=== PATIENT | female | born 1965 | race Caucasian/White ===

== ENCOUNTER 2024-09-26 18:38 | Emergency (ER) | payer OTHER, SELFPAY ==
[2024-09-26] VITALS (7 sets, daily range): BP systolic 138–173; BP diastolic 51–85; PULSE 84–100; RESP 18–29; TEMP 36.4; O2SAT 92–97
--- NOTE | ~2024-09-26 | XR_ITS ---
CHEST RADIOGRAPH CLINICAL HISTORY: LEFT SIDE CHEST PAIN. HX OF COPD AND CHF. . COMPARISON: 10/20/2018 TECHNIQUE: Single portable view of the chest. FINDINGS The cardiomediastinal silhouette is unremarkable. The lungs are clear. Visualized osseous structures and soft tissues are unremarkable. IMPRESSION: No focal infiltrate or effusion. Reviewed, dictated and finalized at location A. EL WORKER
--- OUTSIDE RECORDS SUMMARY | 2024-09-26 18:40 | XMS_ITS | Referral Summary ---
Author Organization [facility] Address [address] [place] [id number] Care Team Providers Care Double End Trimmer Name Role Phone Remy Armendariz MD Primary Care Provider [phone] Allergies Active Allergy Reactions Criticality Noted Date Comments Latex Rash Medium 03/03/2020 Tramadol Other (See comments),Vomiting Low 2016 CHEST PAIN Medications lisinopril (PRINIVIL,ZESTRIL ) 2.5 mg tabletIndications :cardiovascular disease Take 1 tablet (2.5 mg total) by mouth daily. 8 Active cholestyramine/as partame (CHOLESTYRAMINE LIGHT ORAL) Take by mouth Acti ve famotidine (PEPCID) 40 mg tablet Take 1 tablet (40 mg total) by mouth daily PRN Active dulaglutide (TRULICITY) 0.75 mg/0.5 mL pen injector Inject 0.5 mL (0.75 mg total) under the skin every 7 days Active insulin glargine 100 unit/mL vial for injection Inject 30 Units under the skin daily Active atorvastatin (LIPITOR) 40 mg tablet Take 1 tablet by mouth once daily 90 tablet 3 4 Active acetaminophen (TYLENOL) 500 mg tablet Take 1 tablet (500 mg total) by mouth every 6 (six) hours as needed Active nicotine (NICODERM CQ) [address] 1 patch on the skin daily as needed 2 Active ondansetron (ZOFRAN) 4 mg tablet Take 1 tablet (4 mg total) by mouth every 8 (eight) hours 4 Active TRUEplus Pen Needle 32 gauge x 5/32 needle 4 Active benzonatate (TESSALON) 200 mg capsuleIndication s:COPD with acute exacerbation (HCC) Take 1 capsule (200 mg total) by mouth 3 (three) times a day as needed for cough keep tessalon out of reach of children, especially children under the age of 10, due to possible serious risk such as if ingested by children under the age of 10. 30 capsule 4 Active carvediloL (COREG) 6.25 mg tablet TAKE 1 TABLET BY MOUTH TWICE DAILY WITH MEALS 180 tablet 4 Active Active Problems Problem Noted Date Diagnosed Date Abnormal EKG 05/23/2021 Overview (05/23/2021): Added automatically from request for surgery [id number] Chest pain 04/27/2021 Assessment & Plan (04/27/2021 9:33 AM CDT): The patient has new exertional chest pain with multiple risk factors for coronary artery disease. We will reassess with a Lexiscan nuclear stress test. Cardiomyopathy 03/03/2020 Assessment & Plan (02/27/2024 9:22 AM CDT): Stable. Continue carvedilol and lisinopril. Assessment & Plan (08/08/2023 10:54 AM ICD 9 CODER): Check echo. Increase carvedilol to 6.25 mg b.i.d.. Assessment & Plan (12/13/2022 11:08 AM CDT): No signs or symptoms of congestive heart failure. Continue carvedilol and lisinopril. Assessment & Plan (04/27/2021 9:33 AM CDT): The patient has dyspnea on exertion without orthopnea or PND. We will reassess her LV function. In the meantime she will continue on carvedilol and lisinopril. Hypertension 03/03/2020 Assessment & Plan (02/27/2024 9:23 AM CDT): Controlled with carvedilol and lisinopril. No changes recommended Assessment & Plan (08/08/2023 10:54 AM ICD 9 CODER): Controlled with lisinopril and carvedilol. Assessment & Plan (04/27/2021 9:33 AM CDT): Controlled with current medications. 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 No signs of advanced heart block. Continue to monitor. Assessment & Plan (12/13/2022 11:08 AM CDT): Stable and unchanged. 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 Vitamin D deficiency 12/18/2013 Overview (11/08/2016): VITAMIN D DEFICIENCY NOS Pure hypercholesterolemia 12/18/2013 Overview (11/08/2016): PURE HYPERCHOLESTEROLEM Assessment & Plan (02/27/2024 9:23 AM CDT): Continue atorvastatin. Assessment & Plan (08/08/2023 10:54 AM ICD 9 CODER): Continue atorvastatin. Abnormal cardiovascular stress test Immunizations Immunization Administration Dates Next Due Influenza, Split 06/05/2011 Tdap 03/22/2023 Social History Tobacco Use Types Packs/Day Years Used Date Smoking Tobacco: Every Day Cigarettes 1 15 Smokeless Tobacco: Never Comments:Smoking History Pac ks/day: 2 Packs Alcohol Use Standard Drinks/Week Comments No 0 (1 standard drink = 0.6 oz pur e alcohol) Comments Unknown Sex and Gender Information Value Date Recorded Sex Assigned at Not on file Legal Sex Female 7:24 PM ICD 9 CODER Gender Identity Not on file Sexual Orientation Not on file Last Filed Vital Signs Vital Sign Reading Time Taken Comments Blood Pressure 120/75 04/09/2024 10:57 AM CDT Pulse 88 04/09/2024 10:57 AM CDT Temperature 36.8 C (98.2 F) 04/09/2024 10:57 AM CDT Respiratory Rate 22 04/09/2024 10:57 AM CDT Oxygen Saturation 98% 04/09/2024 10:57 AM CDT Inhaled Oxygen Concentration - - Weight 72.6 kg (160 lb) 04/09/2024 10:57 AM CDT Height 162.6 cm (5' 4 ) 04/09/2024 10:57 AM CDT Body Mass Index 27.46 04/09/2024 10:57 AM CDT Plan of Treatment Not on file Procedures Procedure Name Priority Date/Time Associated Diagnosis Comments LIPID PANEL Routine 02/21/2023 9:03 AM CDT Cardiomyopathy, unspecified type (HCC) EGFR STAT 05/24/2021 6:58 AM CDT HEMOGLOBIN A1C Routine 12/18/2017 9:40 AM CDT from Last 3 Months or Most Recently Relevant to Health Maintenance Results * (ABNORMAL) Lipid panel (02/21/2023 9:03 AM CDT) Cholesterol 324(H) 30 - 199 mg/dL ALLEN FORTE Comment: Interpretive Data Ages < or = 19 years Acceptable: <170 mg/dL Borderline high: 170-199 mg/dL High: >or= 200 mg/dL Ages > or = 20 years Desirable: <200 mg/dL Borderline high: 200-239 mg/dL High: >or= 240 mg/dL Literature References: 1. Expert Panel on Integrated Guidelines for Cardiovascular Health and Risk Reduction in Children and Adolescents. Pediatrics 2011;128:S213 2. NCEP Expert Panel. Circulation 2004;110:227 Current Interpretive Data was last revised on 2018. Triglycerides 326(H) <=149 mg/dL ALLEN Comment: Interpretive Data Ages < or = 9 years Acceptable: <75 mg/dL Borderline high: 75-99 mg/dL High: >or= 100 mg/dL Ages 10 to 20 years Acceptable: <90 mg/dL Borderline high: 90-129 mg/dL High: >or= 130 mg/dL Ages > or = 20 years Desirable: <150 mg/dL Borderline high: 150-199 mg/dL High: 200-499 mg/dL Very high: >or= 499 mg/dL Literature References: 1. Expert Panel on Integrated Guidelines for Cardiovascular Health and Risk Reduction in Children and Adolescents. Pediatrics 2011;128:S213 2. NCEP Expert Panel. Circulation 2004;110:227 Current Interpretive Data was last revised on 2018. HDL 35(L) >=40 mg/dL ALLEN Comment: Interpretive Data Ages < or = 19 years Acceptable: >45 mg/dL Borderline low: 40-45 mg/dL Low: <40 mg/dL Ages > or = 20 years Desirable: >or= 60 mg/dL Low: <40 mg/dL Literature References: 1. Expert Panel on Integrated Guidelines for Cardiovascular Health and Risk Reduction in Children and Adolescents. Pediatrics 2011;128:S213 2. NCEP Expert Panel. Circulation 2004;110:227 Current Interpretive Data was last revised on 2018. LDL, calculated 224(H) <=129 mg/dL ALLEN Comment: Interpretive Data Ages < or = 19 years Acceptable: <110 mg/dL Borderline high: 110-129 mg/dL High: >or= 130 mg/dL Ages > or = 20 years Optimal: <100 mg/dL Near optimal: 100-129 mg/dL Borderline high: 130-159 mg/dL High: >160 mg/dL Literature References: 1. Expert Panel on Integrated Guidelines for Cardiovascular Health and Risk Reduction in Children and Adolescents. Pediatrics 2011;128:S213 2. NCEP Expert Panel. Circulation 2004;110:227 Current Interpretive Data was last revised on 2018. Non-HDL Cholesterol 289 mg/dL ALLEN Comment: Interpretive Data Ages < or = 19 years Acceptable: <120 mg/dL Borderline high: 120-144 mg/dL High: >145 mg/dL Ages > or = 20 years When triglycerides are >200 mg/dL, Non-HDL cholesterol is a secondary target of therapy with treatment goals that are 30 mg/dL greater than the LDL cholesterol target. Literature References: 1. Expert Panel on Integrated Guidelines for Cardiovascular Health and Risk Reduction in Children and Adolescents. Pediatrics 2011;128:S213 2. NCEP Expert Panel. Circulation 2004;110:227 Current Interpretive Data was last revised on 2018. Chol/HDL ratio 9 [facility] Blood 02/21/2023 9:03 AM CDT 02/21/2023 12:57 PM CDT us John López MD LAB BLOOD ORDERABLES Final Res ult ALLEN [id number] Department [place] [address] * eGFR (05/24/2021 6:58 AM CDT) eGFR 113 mL/min/1.7 3 m2 ALLEN Comment: Interpretive Data Reference Interval Normal >/= 90 mL/min/1.73m2 Mildly decreased* 60 - 89 mL/min/1.73m2 Mildly to moderately decreased 45 - 59 mL/min/1.73m2 Moderately to severely decreased 30 - 44 mL/min/1.73m2 Severely decreased 15 - 29 mL/min/1.73m2 Kidney Failure < 15 mL/min/1.73m2 *Relative to young adult level Estimated glomerular filtration rate is determined by the CKD-EPI equation recommended by the National Kidney Foundation (KDIGO 2012 Clinical Practice Guideline for the Evaluation and Management of Chronic Kidney Disease. Kidney Intnl Suppl Aug 2012;3:1). The CKD-EPI equation should not be used for patients with unstable renal function and has not been validated in children and those over 70. Current interpretive data was last reviewed 2020 Blood 05/24/2021 6:58 AM CDT 05/24/2021 7:02 AM CDT us John López MD LAB BLOOD ORDERABLES Final Res ult Performing Organization Address City/[facility] [address]/ZIP Co de Phone Number ALLEN [phone] Department of Laboratories [place], [place] [id number] * (ABNORMAL) Hemoglobin A1c (12/18/2017 9:40 AM CDT) Hgb A1C 11.5(H) 4.0 - 6.0 % ALLEN FORTE Comment: Interpretive Data Hemoglobin A1c ADA Interpretive Guidelines <7% Glycemia controlled >8% Hyperglycemia, additional action recommended Karl Immunochemical Method Current interpretive data was last revised on 2016 [facility] [address] Estimated Average Glucose 283 mg/dL ALLEN Comment:Testing performed by : [facility], [place] [address] Blood specimen (specimen) 12/18/2017 9:40 AM CDT 12/18/2017 3:27 PM CDT Narrative ALLEN FORTE - 12/18/2017 8:48 PM CDT us Mary Haq MD LAB BLOOD ORDERABLES Final Re sult Performing Organization Address [facility] [address]/[facility] Co de Phone Number ALLEN [phone] Department [place] [address] from Last 3 Months or Most Recently Relevant to Health Maintenance Insurance [facility] Advance Directives For more information, please contact: [phone] * Full Code (Latest Code Status on File) Date Activated Date Inactivated Comments 05/24/2021 12:40 PM 05/24/2021 5:45 PM * Full Code Date Activated Date Inactivated Comments 12/18/2017 11:02 PM 12/19/2017 1:48 PM * Full Code Date Activated Date Inactivated Comments 12/18/2017 11:02 PM 12/18/2017 11:02 PM * Full Code Date Activated Date Inactivated Comments 12/18/2017 11:02 PM 12/18/2017 11:02 PM Care Teams Double End Trimmer Relationship Specialty Start Date End Date Remy Armendariz MD PCP - General Family Medicine 04/27/21
--- OUTSIDE RECORDS SUMMARY | 2024-09-26 18:40 | XMS_ITS | Patient Health Summary ---
Author Organization [facility] Address [address] [place] [address] Care Team Providers Care State Historical Society Director Name Role Phone James Chen MD Primary Care Provider [phone] Note from [facility],non-owned Affiliates and Associated Physician Practices is amultiple site organization consisting of ambulatory clinics and hospital sitesin [place], [place], [place] and [place]. This disclosure is being madepursuant to the Care Everywhere program and may not contain all information available regarding this patient. Last updated 18.[facility] [employer] Allergies * Coconut Flavor(Swelling) * Tramadol(Cardiac Injury) -High Criticality Medications * Be aware that medications may not be up to date on this document. Alwaysverify current medications with the patient. * Ascorbic Acid 1000 MG * B Complex Vitamins (VITAMIN-B COMPLEX PO) * Emahtrw-Kdmgseqlr-Xmjcgwd D 500-250-125 MG-MG-UNIT TABS * aspirin (ASPIRIN) 81 MG tablet Take 81 mg by mouth once daily * atorvastatin (LIPITOR) 40 MG tablet(Started 11/25/2018) Take 40 mg by mouth once daily * carvedilol (COREG) 3.125 MG tablet(Started 11/25/2018) Take 3.125 mg by mouth 2 times daily * glipiZIDE (GLUCOTROL) 10 MG tablet(Started 10/21/2018) Take 10 mg by mouth once daily * lisinopril (PRINIVIL; ZESTRIL) 2.5 MG tablet Take 2.5 mg by mouth once daily * metFORMIN (GLUCOPHAGE) 500 MG tablet Take 500 mg by mouth * omeprazole (PRILOSEC) 40 MG capsule(Started 12/18/2018) Take 40 mg by mouth once daily * ondansetron, disintegrating, (ZOFRAN ODT) 4 MG tablet(Started 03/23/2019) Take 8 mg by mouth * raNITIdine (ZANTAC) 300 MG tablet(Started 03/23/2019) Take 300 mg by mouth once daily Social History Tobacco Use Types Packs/Day Years Used Date Smoking Tobacco: Every Day Cigarettes 1 40 Smokeless Tobacco: Never Tobacco Cessation:Ready to Q uit: No; Counseling Given: No Alcohol Use Standard Drinks/Week Comments No 0 (1 standard drink = 0.6 oz pur e alcohol) Sex and Gender Information Value Date Recorded Sex Assigned at Not on file Gender Identity Not on file Sexual Orientation Not on file Last Filed Vital Signs Vital Sign Reading Time Taken Comments Blood Pressure 138/62 09/23/2020 10:09 AM EXPERIMENTAL ROCKETSLED MECHANIC Pulse 80 09/23/2020 10:09 AM EXPERIMENTAL ROCKETSLED MECHANIC Temperature 36.7 C (98 F) 09/23/2020 10:09 AM EXPERIMENTAL ROCKETSLED MECHANIC Respiratory Rate 16 09/23/2020 10:0 9 AM EXPERIMENTAL ROCKETSLED MECHANIC Oxygen Saturation 98% 09/23/2020 10: 09 AM EXPERIMENTAL ROCKETSLED MECHANIC Inhaled Oxygen Concentration - - Weight 73.8 kg (162 lb 12.8 oz) 021 10:09 AM EXPERIMENTAL ROCKETSLED MECHANIC Height 162.6 cm (5' 4 ) 09/23/2020 10:0 9 AM EXPERIMENTAL ROCKETSLED MECHANIC Body Mass Index 27.94 09/23/2020 10:09 AM EXPERIMENTAL ROCKETSLED MECHANIC Procedures * ESOPHAGUS, GASTROESOPHAGEAL REFLUX TEST; WITH NASAL CATHETER PH ELECTRODE PLACEMENT(Performed 04/14/2019) Performed for Hiatal hernia, Nausea and vomiting, intractability of vomiting not specified, unspecified vomiting type, Gastroesophageal reflux disease, esophagitis presence not specified * MOTILITY ESOPHAGEAL(Performed 04/14/2019) Performed for Hiatal hernia, Nausea and vomiting, intractability of vomiting not specified, unspecified vomiting type, Gastroesophageal reflux disease, esophagitis presence not specified Care Teams State Historical Society Director Relationship Specialty Start Date End Date James Chen MD [address] [place] [id number] PCP - General Family Medicine 04/14/19
--- OUTSIDE RECORDS SUMMARY | 2024-09-26 18:40 | XMS_ITS | Clinical Summary ---
Author Organization [facility] Address [address] [place] [id number] Care Team Providers Care Doweling Machine Operator Name Role Phone Remy Armendariz MD Primary Care Provider [phone] Allergies Active Allergy Reactions Criticality Noted Date [...] (05/23/2021): Added automatically from request for surgery [id number] Chest pain 04/27/2021 Assessment & Plan (04/27/2021 9:33 AM CDT): The patient has new exertional chest pain with multiple risk factors for coronary artery disease. We will reassess with a Lexiscan nuclear stress test. Cardiomyopathy 03/03/2020 Assessment & Plan (02/27/2024 9:22 AM CDT): Stable. Continue carvedilol and lisinopril. Assessment & Plan (08/08/2023 10:54 AM WELLNESS HEALTH COACH): Check echo. Increase carvedilol to 6.25 mg [...] recommended Assessment & Plan (08/08/2023 10:54 AM WELLNESS HEALTH COACH): Controlled with lisinopril and carvedilol. Assessment & [...] atorvastatin. Assessment & Plan (08/08/2023 10:54 AM WELLNESS HEALTH COACH): Continue atorvastatin. Abnormal cardiovascular stress test Immunizations Immunization Administration Dates Next Due Influenza, Split 06/05/2011 Tdap 03/22/2023 Surgical History Surgery Date Site/Laterality Comments TUBAL LIGATION 08/04/1989 - 08/03/1990 Bilateral tubal ligation CARPAL TUNNEL RELEASE 08/04/2007 - 08/03/2008 Carpal tunnel release CHOLECYSTECTOMY 08/04/2004 - 08/03/2005 Cholecystectomy CARPAL TUNNEL RELEASE Carpal tunnel release SECTION section CHOLECYSTECTOMY Cholecystectomy TUBAL LIGATION Bilateral tubal ligation CARDIAC CATHETERIZATION HYSTERECTOMY 08/04/2008 - 08/03/2009 partial, then full 10 years later Medical History Medical History Date Comments Adiposity obesity Diabetes mellitus (HCC) diabetes mellitus Diabetes mellitus (HCC) diabetes mellitus; Comments: uncontrolled Type 2 diabetes mellitus (HCC) D iabetes type 2 Hypertension Hyperlipidemia Fatty liver Arrhythmia pt unsure FL (myocardial infarction) (HCC) GERD (gastroesophageal reflux disease) Hiatal hernia Kidney stones Family History Medical History Relation Name Comments Colon cancer Father Cancer -colon; Hypertension Father Hypertension; Other Father Alive and well; Stroke Father Stroke; Coronary artery disease Mother Luis nary artery disease; /Coronary artery disease; Diabetes type II Mother Diabetes -T ype II; Cause of : Diabetes -Type II/Diabetes -Type 2; Hyperlipidemia Mother Hyperlipidemi a; Hypertension Mother Hypertension; Diabetes type II Sister 1 Diabetes -T ype II; Hypertension Sister 2 Hypertension; Relation Name Status Comments Father Alive Mother (Age 72) Sister 1 Sister 2 Social History Tobacco Use Types Packs/Day Years Used Date Smoking Tobacco: Every Day Cigarettes 1 15 Smokeless Tobacco: Never Comments:Smoking History Pac ks/day: 2 Packs Alcohol Use Standard Drinks/Week Comments No 0 (1 standard drink = 0.6 oz pur e alcohol) Comments Unknown Sex and Gender Information Value Date Recorded Sex Assigned at Not on file Legal Sex Female 7:24 PM WELLNESS HEALTH COACH Gender Identity Not on file Sexual Orientation Not on file Obstetrics History Last Filed Vital Signs Vital Sign Reading [...] 04/09/2024 10:57 AM CDT Plan of Treatment Health Maintenance Due Date Last Done Comments Albumin Creatinine Ratio, Urine 1966 Breast Cancer Screening-Mammogram 1966 Colon Cancer Screening-Colonoscopy 1966 Depression Screening 1966 Hepatitis C Screening 1966 Dilated Eye Exam 1966 Foot Exam 1966 Hepatitis B Screening 1984 Regular Well Visit/Exam 18-64 1984 Pneumococcal vaccine <65 (1 of 2 - PCV) 1985 Zoster Vaccine (1 of 2) 2016 Hemoglobin A1C 06/20/2018 12/18/2017 eGFR 05/24/2022 05/24/2021, 03/04, 12/10/2018, Additional history exists Lipid Panel 02/22/2024 02/21/2023 Covid-19 Vaccine (3 - 2023-2 5 season) 2024 11/11/2020, 10/14/2020 Influenza Vaccine (#1) 2024 06/05/2011 DTaP/Tdap/Td Vaccine (2 - Td or Tdap) 03/22/2033 03/22/2023 Procedures Procedure Name Priority Date/Time Associated Diagnosis [...] Pediatrics 2011;128:S213 2. NCEP Expert Panel. Circulation 2003;110:227 Current Interpretive Data was last revised on 2018. Triglycerides 326(H) <=149 mg/dL ALLEN FORTE Comment: Interpretive Data Ages [...] Pediatrics 2011;128:S213 2. NCEP Expert Panel. Circulation 2003;110:227 Current Interpretive Data was last revised on 2018. HDL 35(L) >=40 mg/dL ALLEN FORTE Comment: Interpretive Data Ages [...] 2018. LDL, calculated 224(H) <=129 mg/dL ALLEN FORTE Comment: Interpretive Data Ages [...] on 2018. Non-HDL Cholesterol 289 mg/dL ALLEN FORTE Comment: Interpretive Data Ages [...] last revised on 2018. Chol/HDL ratio 9 [facility] FORTE Blood 02/21/2023 9:03 AM CDT 02/21/2023 12:57 PM CDT John López MD LAB BLOOD ORDERABLES Final Res ult ALLEN [id number] [place] [address] * eGFR (05/24/2021 6:58 AM CDT) eGFR [...] 6:58 AM CDT 05/24/2021 7:02 AM CDT John López MD LAB BLOOD ORDERABLES Final Res ult Performing Organization Address [facility]/State/ZIP Co de Phone Number TOREYASHLEY [phone] Department of Laboratories [place], [place] [id number] * (ABNORMAL) Hemoglobin A1c (12/18/2017 9:40 AM CDT) Hgb A1C 11.5(H) 4.0 - 6.0 % ALLEN Comment: Interpretive Data Hemoglobin A1c ADA Interpretive Guidelines <7% Glycemia controlled >8% Hyperglycemia, additional action recommended Karl Immunochemical Method Current interpretive data was last revised on 2016 Testing performed by: [facility], [place] [address] Estimated Average Glucose 283 mg/dL ALLEN Comment:Testing performed by : [facility], [address], [place] [address] Blood specimen (specimen) 12/18/2017 9:40 AM CDT 12/18/2017 3:27 PM CDT Narrative ALLEN - 12/18/2017 8:48 PM CDT Mary Haq MD LAB BLOOD ORDERABLES Final Re sult Performing Organization Address [facility] Co de Phone Number ALLEN [address] [place] [address] from Last 3 Months or Most Recently Relevant to Health Maintenance Insurance [facility] Advance Directives For more information, please contact: [phone] * Full Code (Latest Code Status on File) Date Activated Date Inactivated Comments 05/24/2021 12:40 PM 05/24/2021 5:45 PM * Full Code Date Activated Date Inactivated Comments 12/18/2017 11:02 PM 12/19/2017 1:48 PM * Full Code Date Activated Date Inactivated Comments 12/18/2017 11:02 PM 12/18/2017 11:02 PM * Full Code Date Activated Date Inactivated Comments 12/18/2017 11:02 PM 12/18/2017 11:02 PM Care Teams Doweling Machine Operator Relationship Specialty Start Date End Date Remy Armendariz MD PCP - General Family Medicine 04/27/21
--- OUTSIDE RECORDS SUMMARY | 2024-09-26 18:40 | XMS_ITS | Referral Summary ---
Author Organization [facility] Address [address] [place] [address] Care Team Providers Care Pipe Straightener Name Role Phone James Chen MD Primary Care Provider [phone] Source Comments [facility],non-owned Affiliates and Associated Physician Practices is amultiple site organization consisting of ambulatory clinics and hospital sitesin [place], [place], [place] and [place]. This disclosure is being madepursuant to the Care Everywhere program and may not contain all information available regarding this patient. Last updated 18.[facility] Generaytor Allergies Active Allergy Reactions Criticality Noted Date Comments Coconut Flavor Swelling 09/23/2020 Tramadol Cardiac Injury High 08/13/2016 Medications * Be aware that medications may not be up to date on this document. Alwaysverify current medications with the patient. Medication Sig Dispensed Refills Start Date End Date Status Ascorbic Acid 1000 MG Act hayley B Complex Vitamins (VITAMIN-B COMPLEX PO) Ac tive Eycrlyt-Qozkhiqdb-Qedjf in D 500-250-125 MG-MG-UNIT TABS Active aspirin (ASPIRIN) 81 MG tablet Take 81 mg by mouth once daily Active atorvastatin (LIPITOR) 40 MG tablet Take 40 mg by mouth once daily 11/25/2018 Active carvedilol (COREG) 3.125 MG tablet Take 3.125 mg by mouth 2 times daily 11/25/2018 Active glipiZIDE (GLUCOTROL) 10 MG tablet Take 10 mg by mouth once daily 10/21/2018 Active lisinopril (PRINIVIL; ZESTRIL) 2.5 MG tablet Take 2.5 mg by mouth once daily Active metFORMIN (GLUCOPHAGE) 500 MG tablet Take 500 mg by mouth Active omeprazole (PRILOSEC) 40 MG capsule Take 40 mg by mouth once daily 12/18/2018 Active ondansetron, disintegrating, (ZOFRAN ODT) 4 MG tablet Take 8 mg by mouth 03/23/2019 Active raNITIdine (ZANTAC) 300 MG tablet Take 300 mg by mouth once daily 03/23/2019 Active Social History Tobacco Use Types Packs/Day Years [...] Comments Blood Pressure 138/62 09/23/2020 10:09 AM ENGINE BUILDER Pulse 80 09/23/2020 10:09 AM ENGINE BUILDER Temperature 36.7 C (98 F) 09/23/2020 10:09 AM ENGINE BUILDER Respiratory Rate 16 09/23/2020 10:0 9 AM ENGINE BUILDER Oxygen Saturation 98% 09/23/2020 10: 09 AM ENGINE BUILDER Inhaled Oxygen Concentration - - Weight 73.8 kg (162 lb 12.8 oz) 021 10:09 AM ENGINE BUILDER Height 162.6 cm (5' 4 ) 09/23/2020 10:0 9 AM ENGINE BUILDER Body Mass Index 27.94 09/23/2020 10:09 AM ENGINE BUILDER Plan of Treatment Not on file Care Teams Pipe Straightener Relationship Specialty Start Date End Date James Chen MD [address] [place] [id number] PCP - General Family Medicine 04/14/19
--- OUTSIDE RECORDS SUMMARY | 2024-09-26 18:40 | XMS_ITS | Clinical Summary ---
Author Organization [facility] Address [address] [place] [address] Care Team Providers Care Pediatric Pathologist Name Role Phone James Chen MD Primary Care Provider [phone] Allergies Active Allergy Reactions Criticality Noted Date Comments Tramadol Unknown,Other (see comment),Vomiting High 08/13/2016 Other reaction(s): Cardiac Injury CHEST PAIN Medications metFORMIN ER 500 MG 24 hr tablet Take 1 tablet by mouth 2 (two) times a day. 0 10/21/2018 Active glipiZIDE 10 MG tablet Take 1 tablet by mouth daily. 0 10/21/2018 Active lisinopril 2.5 MG tablet Take 2.5 mg by mouth daily. Active omeprazole EC 20 MG tablet Take 20 mg by mouth 2 (two) times a day. Active atorvastatin 40 MG tablet Take 40 mg by mouth nightly at bedtime. 12 11/25/2018 Active carvedilol 3.125 MG tablet Take 2 tablets by mouth daily. 12 11/25/2018 Active Active Problems Problem Noted Date Diagnosed Date Diabetes ([facility]) 11/26/2018 Hypertension 11/26/2018 Hyperlipidemia 11/26/2018 GERD (gastroesophageal reflux disease) 9 Status post incision and drainage 11/26/2018 Staphylococcus aureus infection 11/26/2018 Gluteal abscess 11/19/2018 Overview (11/26/2018): CT scan reveals area of inflammation or induration in the left gluteal region. Gluteal abscess of the left approximately 8 x 3 cm area. Two areas of adjacent early abscess formation measuring 3.2 x 1.6 cm. I&D under local anesthetic in ED by Dr. Osipov referred by Dr. Kitchen and admitted for Clindamycin IV therapy. Type 2 diabetes mellitus wit hout complication, without long-term current use of insulin ([facility]) 01/14/2017 Dyspnea on exertion 01/14/2017 Chest pain, rule out acute myocardial infarction 01/14/2017 Family History Medical History Relation Comments Heart Disease Father Diabetes Mother Relation Status Comments Father Mother Social History Tobacco Use Types Packs/Day Years Used Date Smoking Tobacco: Every Day Cigarettes Smokeless Tobacco: Never Alcohol Use Standard Drinks/Week Comments Yes 0 (1 standard drink = 0.6 oz pur e alcohol) AUDIT-C Answer Date Recorded Frequency of Alcohol Consumption Monthly or less 11/26/2018 Average Number of Drinks Not on file 019 Frequency of Binge Drinking Not on file 11/03 Comments Unknown Sex and Gender Information Value Date Recorded Sex Assigned at Female 11/26/2018 8:47 AM CDT Legal Sex Female 12:07 PM CDT Gender Identity Female 11/26/2018 8:47 AM CDT Sexual Orientation Not on file Last Filed Vital Signs Vital Sign Reading Time Taken Comments Blood Pressure 107/69 12/14/2018 12:59 PM CDT Pulse 85 12/14/2018 12:59 PM CDT Temperature 36.3 C (97.3 F) 12/14/2018 12:59 PM CDT Respiratory Rate - - Oxygen Saturation - - Inhaled Oxygen Concentration - - Weight 71.2 kg (157 lb) 12/14/2018 12:59 PM CDT Height 162.6 cm (5' 4 ) 12/14/2018 12:59 PM CDT Body Mass Index 26.95 12/14/2018 12:59 PM CDT Plan of Treatment Health Maintenance Due Date Last Done Comments Colorectal Cancer Screening Colonoscopy (10 Years) 1966 Kidney Health Evaluation 1966 Hemoglobin A1C 1966 Annual Physical 1969 Pneumococcal Vaccine: Pediat rics (0 to 5 Years) and At-Risk Patients (6 to 64 Years) (1 of 2 - PCV) 1972 Diabetes: Retinopathy Eye Exam 1984 Hepatitis C 1984 DTaP, Tdap and Td Vaccines ( 1 - Tdap) 1985 Hepatitis B Vaccines (1 of 3 - 19+ 3-dose series) 1985 Mammogram Screening 2006 Zoster Vaccines (1 of 2) 2016 Lipid Panel 01/15/2018 01/15/2017 COVID-19 Vaccine (2023-2 5 season) 2024 Influenza Adult (#1) 2024 Meningococcal B Vaccine Aged Out No l onger eligible based on patient's age to complete this topic Meningococcal Vaccine Aged Out No julián sylvie eligible based on patient's age to complete this topic RSV Immunizations Under 20 Months Aged Out No longer eligible based on patient's age to complete this topic Insurance MEDICAID Care Teams Pediatric Pathologist Relationship Specialty Start Date End Date James Chen MD [address] [place] [address] PCP - General FAMILY PRACTICE 11/19/18
--- OUTSIDE RECORDS SUMMARY | 2024-09-26 18:40 | XMS_ITS | Encounter Summary ---
Author Organization [facility] Address [address] [place] [address] Phone Care Team Providers Care Tower Control Operator Name Role Phone Remy Armendariz MD Primary Care Provider [phone] Rabia Lopez MD Unavailable Rosendo Johnson MD Unavailable [phone] Reason for Visit * Reason Comments Medication Refill Encounter Details Date Type Department Care Team (Late st Contact Info) Description 02/07/2023 Refill [facility] - Endocrinology - [place] [address] [place] [address] Rabia Lopez MD [address] [address] Medication Refill Social History Tobacco Use Types Packs/Day Years Used Date Smoking Tobacco: Every Day Cigarettes 1 36 Smokeless Tobacco: Never Alcohol Use Standard Drinks/Week Comments Yes 0 (1 standard drink = 0.6 oz pur e alcohol) Ocassional wine Comments No Sex and Gender Information Value Date Recorded Sex Assigned at Not on file Legal Sex Female 11:38 PM CDT Gender Identity Not on file Sexual Orientation Not on file documented as of this encounter Miscellaneous Notes * Telephone Encounter - Rose Dunn RN - 02/10/2023 2:42 PM CDT Requested Prescriptions Pending Prescriptions Disp Refills ??? Insulin Pen Needle (BD Pen Needle Brianda 2nd Gen) 32G X 4 MM Misc [Pharmacy Med Name: BD PEN NEEDLE/BRIANDA [id number] MIS] 100 Each 0 Sig: USE 1 ONCE DAILY Next appt: Message sent to schedule follow up. documented in this encounter Plan of Treatment Not on file documented as of this encounter Visit Diagnoses Not on filedocumented in this encounter Care Teams Tower Control Operator Relationship Specialty Start Date End Date Remy Armendariz MD [address] [place] [address] PCP - General Family Medicine 05/02/21 Rabia Lopez MD [address] [address] Consulting Physician Endocrinology 01/17/22 Rosendo Johnson MD [address] [address] Consulting Physician General Surgery 04/09/22 documented as of this encounter
--- OUTSIDE RECORDS SUMMARY | 2024-09-26 18:40 | XMS_ITS | Clinical Summary ---
Author Organization [facility] Address [address] [facility] [place] [address] Care Team Providers Care Manager Reading Name Role Phone James Chen MD Primary Care Provider [phone] Source Comments [facility],non-owned Affiliates and Associated Physician Practices is amultiple site organization consisting of ambulatory clinics and hospital sitesin [place], [place], [place] and [place]. This disclosure is being madepursuant to the Care Everywhere program and may not contain all information available regarding this patient. Last updated 18.[facility] Allergies Active Allergy Reactions Criticality Noted Date Comments Coconut Flavor Swelling 09/23/2020 Tramadol Cardiac Injury High 08/13/2016 Medications * Be aware that medications may not be up to date on this document. Alwaysverify current medications with the patient. Medication Sig Dispensed Refills Start Date End Date Status Ascorbic Acid 1000 MG Act hayley B Complex Vitamins (VITAMIN-B COMPLEX PO) Ac tive Fbzgldv-Pmfmzbdjb-Uwoks in D 500-250-125 MG-MG-UNIT TABS Active aspirin [...] mg by mouth once daily 03/23/2019 Active Family History Medical History Relation Name Comments Heart defect Father Diabetes Mother Heart defect Mother Relation Name Status Comments Father Mother Social History Tobacco [...] Comments Blood Pressure 138/62 09/23/2020 10:09 AM WATER RESOURCE AGENT Pulse 80 09/23/2020 10:09 AM WATER RESOURCE AGENT Temperature 36.7 C (98 F) 09/23/2020 10:09 AM WATER RESOURCE AGENT Respiratory Rate 16 09/23/2020 10:0 9 AM WATER RESOURCE AGENT Oxygen Saturation 98% 09/23/2020 10: 09 AM WATER RESOURCE AGENT Inhaled Oxygen Concentration - - Weight 73.8 kg (162 lb 12.8 oz) 021 10:09 AM WATER RESOURCE AGENT Height 162.6 cm (5' 4 ) 09/23/2020 10:0 9 AM WATER RESOURCE AGENT Body Mass Index 27.94 09/23/2020 10:09 AM WATER RESOURCE AGENT Plan of Treatment Health Maintenance Due Date Last Done Comments COLOGUARD (AGES 45-75) - COL ON CA SCREENING 1966 COLON MONITORING 1966 COLONOSCOPY - COLON CA SCREENING 1966 CT COLONOGRAPHY - COLON CA SCREENING 1966 Colorectal Cancer Screening 1966 FIT - COLON CA SCREENING 1966 FLEX SIG - COLON CA SCREENING 1966 MAMMOGRAM 1966 HIV SCREENING 1981 HEPATITIS C SCREENING 02/29/1984 DTAP/TDAP/TD VACCINES (1 - Tdap) 1985 HEPATITIS B VACCINE (1 of 3 - 19+ 3-dose series) 1985 PNEUMOCOCCAL VACCINE 50+ (1 of 2 - PCV) 1985 PNEUMOCOCCAL VACCINE (1 of 2 - PCV) 1985 ZOSTER VACCINE (1 of 2) 2016 SCREENING FOR DIABETES 01/01/2020 COVID-19 VACCINE (1 - 2023-2 5 season) 2024 INFLUENZA VACCINE (#1) 2024 06/05/2011 DEPRESSION SCREENING 08/04/2024 HIB VACCINE Aged Out No longer eligi ble based on patient's age to complete this topic HPV VACCINE Aged Out No longer eligi ble based on patient's age to complete this topic MENINGOCOCCAL (Group B) VACCINE Aged Out No longer eligible based on patient's age to complete this topic MENINGOCOCCAL VACCINE Aged Out No julián sylvie eligible based on patient's age to complete this topic Care Teams Manager Reading Relationship Specialty Start Date End Date James Chen MD [address] [place] [id number] PCP - General Family Medicine 04/14/19
--- OUTSIDE RECORDS SUMMARY | 2024-09-26 18:40 | XMS_ITS | Clinical Summary ---
Author Organization [facility] Address [address] [place] [address] Phone Care Team Providers Care Scrap Piler Name Role Phone Remy Armendariz MD Primary Care Provider [phone] Rabia Lopez MD Unavailable Rosendo Johnson MD Unavailable Allergies Active Allergy Reactions Criticality Noted Date Comments Coconut Flavoring Agent (Non-Screening) Swelling 09/23/2020 Latex Rash Medium 03/03/2020 Tramadol Vomiting,Other (see Comments) High 01/14/2017 CHEST PAIN Medications carvedilol (COREG) 3.125 MG Tablet Take 3.125 mg by mouth 2 times daily. Active lisinopril (PRINIVIL, ZESTRIL) 2.5 MG Tablet Take 2.5 mg by mouth nightly. Active atorvastatin (LIPITOR) 80 MG Tablet Take 80 mg by mouth daily. Active Glucose Blood (OneTouch Verio) Strip Test blood glucose 2x daily. 200 Strip 3 10/06/19 22 Active Blood Glucose Monitoring Suppl (OneTouch Verio) w/Device Kit 1 Kit by Does not apply route 2 times daily. Test blood glucose 2x daily. 1 Kit 10/06/19 22 Active OneTouch Delica Lancets 33G Misc 1 Lancet by Does not apply route 2 times daily. Test blood glucose 2x daily. 200 Lancet 3 10/06/19 22 Active Trulicity 0.75 MG/0.5ML Solution Pen-injector INJECT 0.75 MG SUBCUTANEOUSLY ONCE WEEKLY 11/15/19 22 Active pantoprazole (PROTONIX) 40 MG Tablet Delayed ResponseIndicat ions:Epigastric pain Take 1 Tablet by mouth 2 times daily (before meals). 180 Tablet 1 01/08/20 Active nicotine (NICODERM CQ) 21 MG/24HR PATCH 24 HR 1 Patch by Transdermal route daily as needed for Other (Nicotine dependency). 30 Patch 01/10/20 22 Active Additional Information Patient not taking.Reported on 04/17/2022 ondansetron (ZOFRAN-ODT) 4 MG TABLET DISPERSIBLE Take 1 Tablet by mouth every 6 hours as needed for Nausea - 1st line. 10 Tablet 01/10/20 22 Active polyethylene glycol (GLYCOLAX, MIRALAX) 17 g PackIndications :Constipation Take 1 Packet by mouth 2 times daily as needed for Constipation - 1st line. Dissolve in 4-8 oz of liquid. Indications: Constipation 90 Packet 01/10/20 Active senna (SENOKOT) 8.6 MG Tablet Take 1 Tablet by mouth 2 times daily as needed for Constipation - 2nd line. 30 Tablet 01/10/20 Active Additional Information Patient not taking.Reported on 04/17/2022 Lantus SoloStar 100 UNIT/ML Solution Pen-injector 24 Units by Subcutaneous route every morning. 30 mL 1 02/13/20 Active cholestyramine light (QUESTRAN LIGHT) 4 g Pack Take 1 Packet by mouth daily. 30 Packet 2 03/26/20 Active acetaminophen (TYLENOL) 500 MG Tablet Take 500 mg by mouth every 6 hours as needed. Active famotidine (PEPCID) 40 MG Tablet 04/13/20 Active metFORMIN (GLUCOPHAGE-XR) 500 MG TABLET SR 24 HR Take 2 tablets by mouth twice daily 360 Tablet 05/03/20 Active Insulin Pen Needle (BD Pen Needle Brianda 2nd Gen) 32G X 4 MM Misc USE 1 ONCE DAILY 100 Each 1 02/11/20 23 Active Insulin Pen Needle (TRUEplus Pen [place]) 32G X 4 MM Misc 1 Pen Needle by Does not apply route daily. Use to inject insulin daily. 100 Pen Needle 3 03/01/20 23 Active Active Problems Problem Noted Date Diagnosed Date Tobacco dependence syndrome 01/08/2022 GERD (gastroesophageal reflux disease) 2 Neuropathy 01/08/2022 CAD (coronary artery disease) 01/08/2022 COVID-19 virus detected 01/08/2022 UTI (urinary tract infection) 01/08/2022 Hiatal hernia 12/18/2018 Nausea and vomiting 12/18/2018 Chest pain, rule out acute myocardial infarction 01/14/2017 Type 2 diabetes mellitus, wi th long-term current use of insulin 01/14/2017 Hypertension 01/14/2017 Hyperlipidemia 01/14/2017 Dyspnea on exertion 01/14/2017 Immunizations Immunization Administration Dates Next Due Covid-19, Mrna, Lnp-s, Pf, 1 00 Mcg Or 50 Mcg Dose (MODERNA) 11/11/2020,10/14/2020 Influenza Vaccine 06/05/2011 Family History Medical History Relation Name Comments Heart Disease Father Cancer Maternal Grandfather Diabetes Maternal Grandfather Lung Cancer Maternal Grandfather Diabetes Mother Cancer Niece Colon Cancer Niece Heart Disease Paternal Grandfather Stroke Paternal Grandfather Heart Disease Paternal Grandmother Stroke Paternal Grandmother Diabetes Sister Relation Name Status Comments Father Maternal Grandfather Mother Niece Paternal Grandfather Paternal Grandmother Sister Social History Tobacco Use Types Packs/Day Years Used Date Smoking Tobacco: Every Day Cigarettes 1 36 Smokeless Tobacco: Never Tobacco Cessation:Ready to Q uit: No; Counseling Given: Yes Alcohol Use Standard Drinks/Week Comments Yes 0 (1 standard drink = 0.6 oz pur e alcohol) Ocassional wine Comments No Sex and Gender Information Value Date Recorded Sex Assigned at Not on file Legal Sex Female 11:38 PM CDT Gender Identity Not on file Sexual Orientation Not on file Last Filed Vital Signs Vital Sign Reading Time Taken Comments Blood Pressure 140/80 04/17/2022 10:29 AM CDT Pulse 94 04/17/2022 10:29 AM CDT Temperature 36.4 C (97.5 F) 04/17/2022 10:29 AM CDT Respiratory Rate 16 04/17/2022 10:29 AM CDT Oxygen Saturation 97% 04/17/2022 10:29 AM CDT Inhaled Oxygen Concentration - - Weight 70.8 kg (156 lb) 04/17/2022 10:29 AM CDT Height 162.6 cm (5' 4 ) 04/17/2022 10:29 AM CDT Body Mass Index 26.78 04/17/2022 10:29 AM CDT Plan of Treatment Health Maintenance Due Date Last Done Comments Diabetes: Eye Exam 1966 Diabetes: Foot Exam 1966 Hepatitis C Virus (HCV) Screening 1966 Mammogram 1966 Pneumococcal Immunization Combined (1 of 2 - PCV) 1972 Hepatitis B Immunization (1 of 3 - 19+ 3-dose series) 1985 Pneumococcal Immunization (50+ years) (1 of 2 - PCV) 1985 Pap Smear 1987 Cervical Cancer Screening (CCS) 1996 HPV/Cotest 1996 Cologuard 2016 Immunochemical Fecal Occult Blood 2016 Zoster Immunization (1 of 2) 2016 Diabetes: Hemoglobin A1c 07/27/2022 022, 10/05/2021, 12/18/2017, Additional history exists Diabetes: Nephropathy Screening 01/08/2023 01/08/2022, 10/14/2021, 12/10/2018, Additional history exists Influenza Immunization (#1) 2024 06/05/2011 SARS-COV-2 Immunization ( season) 2024 11/11/2020, 10/14/2020 Colonoscopy 04/15/2027 04/15/2022, 02/08/2019 Colorectal Cancer Screening 04/15/2027 Respiratory Syncytial Virus (RSV) Immunization (Adult) (1 - 1-dose 75+ series) 2041 04/15/2022, 02/08/2019 DTaP/Tdap/Td Immunization Discontinued 03/22/2023 TdaP Immunization Completed 03/22/2023 Meningococcal Immunization (ACWY) Aged Out No longer eligible based on patient's age to complete this topic Rotavirus Immunization Aged Out No lo nger eligible based on patient's age to complete this topic Procedures Procedure Name Priority Date/Time Associated Diagnosis Comments POCT GLYCOSYLATED HEMOGLOBIN Routine 01/25/2022 11:21 AM CDT Type 2 diabetes mellitus with diabetic polyneuropathy, without long-term current use of insulin (HCC) CMP (COMPREHENSIVE METABOLIC PANEL) STAT 01/08/2022 4:49 PM CDT from Last 3 Months or Most Recently Relevant to Health Maintenance Results * (ABNORMAL) POCT GLYCOSYLATED HEMOGLOBIN (01/25/2022 11:21 AM CDT) Pathologist [facility] HGB-A1C 7.7(A) 4 - 6 01/25/2022 11:2 1 AM CDT Rabia Lopez MD POINT OF CARE TESTING (MANUAL) F inal Result * (ABNORMAL) CMP (Comprehensive Metabolic Panel) (01/08/2022 4:49 PM CDT) [facility] SODIUM 134(L) 136 - 144 mmol/L 01/08/2022 5:25 PM CDT [facility] POTASSIUM 3.8 3.5 - 5.1 mmol/L 01/08/2022 5:25 PM CDT [facility] CHLORIDE 99(L) 100 - 110 mmol/L 01/08/2022 5:25 PM CDT [facility] CO2, VENOUS 23 22 - 32 mmol/L 01/08/2022 5:25 PM CDT [facility] ANION GAP 15.8 8.0 - 20.0 mmol/L 01/08/2022 5:25 PM CDT [facility] GLUCOSE 161(H) 70 - 99 mg/dL 01/08/2022 5:25 PM CDT [facility] BUN 13 6 - 20 mg/dL 01/08/2022 5:25 PM CDT [facility] CREATININE, BLOOD 0.68 0.60 - 1.10 mg/dL 01/08/2022 5:25 PM CDT [facility] BUN/CREATININE RATIO 19 12 - 20 ratio 01/08/2022 5:25 PM CDT [facility] TOTAL PROTEIN 6.9 6.0 - 8.3 g/dL 01/08/2022 5:25 PM CDT [facility] ALBUMIN 4.2 3.5 - 5.2 g/dL 01/08/2022 5:25 PM CDT [facility] Comment: The colormetric methods used for the determination of Albumin may lead to falsely elevated test results in patients suffering from renal failure or insufficiency due to interference with other proteins. A/G RATIO 1.6 1.0 - 2.0 01/08/2022 5:25 PM CDT [facility] CALCIUM 9.0 8.9 - 10.3 mg/dL 01/08/2022 5:25 PM CDT [facility] T BILI 0.5 <=1.2 mg/dL 01/08/2022 5:25 PM CDT [facility] SGOT (AST) 13 <=32 U/L 01/08/2022 5:25 PM CDT [facility] SGPT (ALT) 14 <=41 U/L 01/08/2022 5:25 PM CDT [facility] ALKALINE PHOSPHATASE 89 35 - 105 U/L 01/08/2022 5:25 PM CDT [facility] GFR, EST. NONAFRICAN >60 >=60 01/08/2022 5:25 PM CDT [facility] GFR, EST. >60 >=60 022 5:25 PM CDT [facility] Comment: Creatinine Clearance is the preferred criteria for selecting drug dose adjustments in renally impaired patients. The GFR is provided as additional pertinent clinical information. GFR is reported in mL/min/1.73 sq m. Blood Venipuncture / Unknown 01/08/2022 4:49 PM CDT 01/08/2022 4:58 PM CDT us Toni Holder MD CHEMISTRY ORDERABLES Final Resul t [facility] [address] [place] [address] from Last 3 Months or Most Recently Relevant to Health Maintenance Insurance MEDICAID [facility] Advance Directives * No CPR-Selective Treatment (Latest Code Status on File) Date Activated Date Inactivated Comments 01/09/2022 1:17 AM 01/09/2022 3:51 PM No CPR - Selec tive Treatment: FULL ARREST: Do Not Attempt Resuscitation. PRE-ARREST: DO NOT USE INTUBATION OR MECHANICAL VENTILATION, but may use basic medical treatment like CPAP or BiPAP, antibiotics, IV fluids, oxygen, etc. Avoid care in ICU setting. Question Answer Comments Physician documentation made in notes? Yes * Full Code Date Activated Date Inactivated Comments 01/08/2022 8:36 PM 01/09/2022 1:17 AM CPR-Full Treat ment: FULL ARREST: Attempt Resuscitation/CPR wit intubation and mechanical ventilation. PRE-ARREST: Use entire range of life support measures to stabilize the patient. * Full Code Date Activated Date Inactivated Comments 01/14/2017 8:40 PM 01/15/2017 6:45 PM CPR-Full Karan atment: FULL ARREST: Attempt Resuscitation/CPR wit intubation and mechanical ventilation. PRE-ARREST: Use entire range of life support measures to stabilize the patient. Care Teams Scrap Piler Relationship Specialty Start Date End Date Remy Armendariz MD [address] [place] [id number] PCP - General Family Medicine 05/02/21 Rabia Lopez MD [address] [address] Consulting Physician Endocrinology 01/17/22 Rosendo Johnson MD [address] [phone] Consulting Physician General Surgery 04/09/22
--- NOTE | 2024-09-26 18:41 | ECG_ITS ---
Test Date: 2024-09-26 18:46:56 Measurements Intervals [place] Rate: 92 P: 62 MN: 148 QRS: -75 QRSD: 160 T: 95 QT: 410 QTc: 507 Interpretive Statements SINUS RHYTHM RIGHT BUNDLE BRANCH BLOCK LEFT ANTERIOR FASCICULAR BLOCK LEFT VENTRICULAR HYPERTROPHY AND ST-T CHANGE ABNORMAL ECG No previous ECG available for comparison Electronically Signed On 09-27-2024 06:50:05 CHIEF ENGINEERING DIVISION by Glen Stover D.O.
--- NOTE | 2024-09-26 18:43 | ED_ITS ---
HPI - Chest Pain General Chief Complaint: Chest Pain Stated Complaint: sob chest pain Time Seen by Provider: 09/26/24 18:43 Source: patient and family Mode of arrival: ambulatory Limitations: no limitations History of Present Illness HPI narrative: Patient is a 59-year-old female with left-sided chest pain that started today with associated lower extremity edema. She has a history of CAD and COPD with CHF as well. She goes to [facility]. Her hospital [facility]. DICKENS complaint: chest pain Pertinent past history: coronary artery disease, prior DC and other ( COPD and CHF) Onset (ago): day(s) ( 1) Timing of current episode: episodic ( resolved at this time) and now resolved Prior episodes: Yes Onset: during exertion Pain location: left chest Pain radiation: none Severity: mild Pain scale (0-10): 2 Quality: tightness Relieving factors: rest Exacerbating factors: exertion and movement Context: other ( patient has left-sided chest pain and associated bilateral lower extremity edema today) Associated symptoms: leg swelling Treatment prior to arrival: none Risk Factors Coronary artery disease risk factors: diabetes, smoking history and hyperlipidemia Thoracic aortic dissection risk factors: none Related Data On Oral Contraceptives: No Allergies Allergy/AdvReac Type Severity Reaction Status Date / Time tramadol Allergy Intermediate Rash Verified 09/26/24 18:44 Review of Systems 2 Review of Systems: All systems reviewed & are unremarkable except as noted in HPI and below Constitutional: Constitutional: Reports no additional constitutional complaints Eyes: Eyes: Reports no additional eye complaints ENT: Reports system reviewed and no additional complaints, except as documented Cardiovascular: Cardiovascular: Reports no additional cardiovascular complaints Respiratory: Respiratory: Reports no additional respiratory complaints Gastrointestinal: Gastrointestinal: Reports no additional gastrointestinal complaints Genitourinary: Genitourinary: Reports no additional female genitourinary complaints Musculoskeletal: Musculoskeletal: Reports no additional musculoskeletal complaints Integumentary/Breasts: Skin/Breast: Reports system reviewed and no additional complaints, except as docu Neurologic: Reports system reviewed and no additional complaints, except as documented Psychiatric: Psychiatric: Reports no additional psychiatric complaints Endocrine: Endocrine: Reports no additional endocrine complaints Hematologic/Lymphatic: Hematologic/Lymphatic: Reports no additional hematologic/lymphatic complaints Allergic/Immunologic: Allergic/Immunologic: Reports no additional allergic/immunologic complaints Exam 2 Const: General: healthy appearing Nutritional Appearance: well nourished Orientation/consciousness: patient oriented x3 Limitations: no limitations HENMT: Head: normal to inspection Ears: external ears normal F baldev/Nose/Sinus: Normal external nose present Eyes: Conjunctivae: conjunctivae normal Pupils: Equal, round and reactive pupils present EOM: EOMs intact bilaterally Neck: Neck: normal visual inspection Chest: Chest palpation & inspection: normal inspection of the chest Resp: Effort & Inspection: normal respiratory effort and not labored A uscultation: clear to auscultation bilaterally, no crackles, no rales, no rhonchi, no wheezes, breath sounds present and diminished lung sounds ( bilaterally and diffuse) Cardio: Rate: regular rate Rhythm: regular rhythm Heart sounds: no murmurs GI: Inspection: non-distended GI Palp: Yes Soft to palpation and No Tenderness to palpation present (GI) Auscultation: normal bowel sounds : General: Yes bladder normal to palpation Back/Spine/Pelvis: Back: no CVA tenderness Skin: General skin exam: normal color Rashes: no rashes Wounds: no wounds Neuro: General: patient oriented x3 Cranial nerves: Yes Nystagmus not present Speech: normal speech Extrem: General: normal to inspection Psych: Mental Status: mental status grossly normal Affect: normal affect Attitude: cooperative Course Vital Signs Vital signs: Vital Signs Temperature 36.4 C 09/26/24 18:40 Pulse Rate 100 09/26/24 18:40 Respiratory Rate 18 09/26/24 18:40 Blood Pressure 173/85 H 09/26/24 18:40 Pulse Oximetry 97 09/26/24 18:40 Oxygen Delivery Room Air 09/26/24 18:40 Temperature 36.4 C 09/26/24 18:40 Pulse Rate 84 09/26/24 22:03 Respiratory Rate 18 09/26/24 22:03 Blood Pressure 168/74 H 09/26/24 22:03 Pulse Oximetry 94 09/26/24 22:03 Oxygen Delivery Room Air 09/26/24 22:03 MDM - Chest Pain MDM Narrative Medical decision making narrative: patient is a 59-year-old female with chest pain and lower extremity edema. We will do a cardiac workup at this time. Lab Data Attestation: I reviewed the patient's lab results. 09/26/24 18:58 09/26/24 18:58 Labs: Lab Results 09/26/24 Range/Units 18:58 WBC 6.9 (4.8-10.8) K/mm3 RBC 4.35 (4.20-5.40) M/mm3 Hgb 13.1 (12.0-15.0) g/dL Hct 39.7 (35.0-49.0) % MCV 91.3 (78.0-102.0) fL MCH 30.1 (27.0-31.0) pg MCHC 33.0 (32-36) g/dL RDW 13.2 (11.6-14.4) % Plt Count 195 (150-420) K/mm3 MPV 10.2 (9.2-11.8) fl Immature Gran % (Auto) 0.6 H (0.0-0.0) % Neut % (Auto) 67.0 (50.0-70.0) % Lymph % (Auto) 23.1 (18.0-42.0) % Ocean % (Auto) 7.9 (2.0-11.0) % Eos % (Auto) 1.0 (1.0-6.0) % Baso % (Auto) 0.4 (0.0-1.0) % Lymph # (Auto) 1.60 (1.10-4.50) K/mm3 Ocean # (Auto) 0.55 (0.10-0.90) K/mm3 Eos # (Auto) 0.07 (0.02-0.50) K/mm3 Baso # (Auto) 0.03 (0.00-0.10) K/mm3 Abs Immat Gran (auto) 0.04 H (0.00-0.00) K/mm3 Absolute Neuts (auto) 4.64 (1.70-7.20) K/mm3 Absolute Nucleated RBC 0.00 (0.00-0.00) K/mm3 Nucleated RBC % 0.0 (0-0.0) % PT 10.5 (9.50-12.1) Seconds INR 0.9 APTT 29.1 (23.9-30.70) Sec D-Dimer 0.19 (0.19-0.50) mg/L Sodium 139 (136-145) mmol/L Potassium 4.1 (3.5-5.1) mmol/L Chloride 102 (98-108) mmol/L Carbon Dioxide 28 (21-32) mmol/L Anion Gap 9 (4-12) mmol/L BUN 18 (7-18) mg/dL Creatinine 1.09 H (0.55-1.02) mg/dL Estim Creat Clear Calc 47 ml/min Estimated GFR 52 L (59 - ) Glucose 345 H (70-99) mg/dL Calculated Osmolality 303 H (285-295) mOsm/kg Calcium 8.3 L (8.5-10.1) mg/dL Total Bilirubin 0.2 (0.00-1.00) mg/dL AST 11 L (15-37) U/L ALT 27 (14-59) U/L Alkaline Phosphatase 208 H (46-116) U/L Troponin I 19.9 (0.00-60.4) ng/L NT-Pro-B Natriuret Pep 1494 H (0-125) pg/mL Total Protein 6.3 L (6.4-8.2) g/dL Albumin 2.6 L (3.4-5.0) g/dL Lipase 84 H (16-77) U/L Urine Color Pending Urine Appearance Pending Urine pH Pending Ur Specific [facility] Pending Urine Protein Pending Urine Glucose (UA) Pending Urine Ketones Pending Ur Blood (Man) Pending Urine Nitrate Pending Urine Bilirubin Pending Urine Urobilinogen Pending Leukocyte Esterase Rfl Pending Imaging Data Attestation: I personally reviewed and interpreted this imaging study as follows: Radiologist's impression: chest x-ray was negative for acute process ECG Data EKG #1: Attestation: I personally reviewed and interpreted this ECG as follows: ECG completion date: 09/26/24 ECG completion time: 19:34 Prior ECG tracings: available for review ( History of right bundle-branch block and same looking EKG) EKG Interpretation: normal rate, sinus rhythm, no ectopy, non-specific ST changes, widened QRS, RBBB, normal QT, left axis and no acute changes Discharge Plan Discharge Clinical Impression: Acute exacerbation of CHF (congestive heart failure), Atypical chest pain Patient Disposition: Home, Self-Care Condition: Improved Instructions: Heart Failure (DC) Additional Instructions: please come back to the emergency room with any worse symptoms such as chest pain. Follow-up with the endless track vehicle mechanic as soon as possible in the next week. I would suggest medication maximization with her primary doctor and endless track vehicle mechanic. You have some medications that could be added to enhance treatment to your disease processes. Patient Language: Nepali Prescriptions: New furosemide [Lasix] 20 mg tablet 20 mg PO DAILY Qty: 30 0RF potassium chloride 10 mEq capsule, extended release 10 meq PO DAILY Qty: 30 0RF No Action metformin 500 mg tablet 500 mg PO BID Qty: 60 0RF Follow-up/Referrals: Kala,MD Remy [Primary Care Provider] - Time of Disposition: 22:19
--- NOTE | 2024-09-26 18:55 | PC.NURSE ---
ASSUMED CARE. REPORT RECEIVED FROM JORGE A SNOW.
[2024-09-26 19:08] LABS: Basophils Absolute Auto 0.03 K/mm3 (0.00-0.10); Basophils Percent Auto 0.4 % (0.0-1.0); Eosinophils Absolute Auto 0.07 K/mm3 (0.02-0.50); Hematocrit 39.7 % (35.0-49.0); Hemoglobin 13.1 g/dL (12.0-15.0); Immature Granulocyte Absolute 0.04 K/mm3 (0.00-0.00); Immature Granulocyte Percent A 0.6 % (0.0-0.0); Lymphocytes Percent Auto 23.1 % (18.0-42.0); Mean Corpuscular Hemoglobin 30.1 pg (27.0-31.0); Mean Corpuscular Volume 91.3 fL (78.0-102.0); Mean Platelet Volume 10.2 fl (9.2-11.8); Monocytes Absolute Auto 0.55 K/mm3 (0.10-0.90); Monocytes Percent Auto 7.9 % (2.0-11.0); Neutrophils Absolute Auto 4.64 K/mm3 (1.70-7.20); Platelet Count Result 195 K/mm3 (150-420); Red Blood Count 4.35 M/mm3 (4.20-5.40); Red Cell Distribution Width 13.2 % (11.6-14.4); White Blood Count 6.9 K/mm3 (4.8-10.8)
--- NOTE | 2024-09-26 19:23 | PC.NURSE ---
PATIENT RESTING QUIETLY ON STRETCHER. AWARE THAT BLOOD WORK IS IN PROCESS. CALL LIGHT IN REACH. DENIES ANY CHEST PAIN OR NEEDS AT THIS TIME. RESP EVEN AND UNLABORED
--- OUTSIDE RECORDS SUMMARY | 2024-09-26 19:25 | XMS_ITS | Referral Summary ---
Author Organization [facility] Address [address] [place] [address] Care Team Providers Care Senior National Account Manager Name Role Phone James Chen MD Primary Care Provider [phone] Source Comments [facility],non-owned Affiliates and Associated Physician Practices is amultiple site organization consisting of ambulatory clinics and hospital sitesin [place], [place], [place] and [place]. This disclosure is being madepursuant to the Care Everywhere program and may not contain all information available regarding this patient. Last updated 18.[facility] App[facility] Couple Allergies Active Allergy Reactions Criticality Noted Date Comments Coconut Flavor Swelling 09/23/2020 Tramadol Cardiac Injury High 08/13/2016 Medications * Be aware that medications may not be up to date on this document. Alwaysverify current medications with the patient. Medication Sig Dispensed Refills Start Date End Date Status Ascorbic Acid 1000 MG Act ahyley B Complex Vitamins (VITAMIN-B COMPLEX PO) Ac tive Bxfyxgp-Pxxngslbm-Idtjv in D 500-250-125 MG-MG-UNIT TABS Active aspirin [...] Comments Blood Pressure 138/62 09/23/2020 10:09 AM USER INTERFACE ENGINEER Pulse 80 09/23/2020 10:09 AM USER INTERFACE ENGINEER Temperature 36.7 C (98 F) 09/23/2020 10:09 AM USER INTERFACE ENGINEER Respiratory Rate 16 09/23/2020 10:0 9 AM USER INTERFACE ENGINEER Oxygen Saturation 98% 09/23/2020 10: 09 AM USER INTERFACE ENGINEER Inhaled Oxygen Concentration - - Weight 73.8 kg (162 lb 12.8 oz) 021 10:09 AM USER INTERFACE ENGINEER Height 162.6 cm (5' 4 ) 09/23/2020 10:0 9 AM USER INTERFACE ENGINEER Body Mass Index 27.94 09/23/2020 10:09 AM USER INTERFACE ENGINEER Plan of Treatment Not on file Care Teams Senior National Account Manager Relationship Specialty Start Date End Date James Chen MD [address] [place] [id number] PCP - General Family Medicine 04/14/19
--- OUTSIDE RECORDS SUMMARY | 2024-09-26 19:25 | XMS_ITS | Clinical Summary ---
Author Organization [facility] Address [address] [place] [address] Care Team Providers Care Bull Ladle Tender Name Role Phone James Chen MD Primary Care Provider [phone] Source Comments [facility],non-owned Affiliates and Associated Physician Practices is amultiple site organization consisting of ambulatory clinics and hospital sitesin [place], [place], [place] and [place]. This disclosure is being madepursuant to the Care Everywhere program and may not contain all information available regarding this patient. Last updated 18.[facility] Allergies Active Allergy Reactions Criticality Noted Date Comments Coconut Flavor Swelling 09/23/2020 Tramadol Cardiac Injury High 08/13/2016 Medications * Be aware that medications may not be up to date on this document. Alwaysverify current medications with the patient. Medication Sig Dispensed Refills Start Date End Date Status Ascorbic Acid 1000 MG Act hayley B Complex Vitamins (VITAMIN-B COMPLEX PO) Ac tive Obwnoxg-Xrvzwggvj-Cbkce in D 500-250-125 MG-MG-UNIT TABS Active aspirin [...] Comments Blood Pressure 138/62 09/23/2020 10:09 AM AMPOULE FILLER Pulse 80 09/23/2020 10:09 AM AMPOULE FILLER Temperature 36.7 C (98 F) 09/23/2020 10:09 AM AMPOULE FILLER Respiratory Rate 16 09/23/2020 10:0 9 AM AMPOULE FILLER Oxygen Saturation 98% 09/23/2020 10: 09 AM AMPOULE FILLER Inhaled Oxygen Concentration - - Weight 73.8 kg (162 lb 12.8 oz) 021 10:09 AM AMPOULE FILLER Height 162.6 cm (5' 4 ) 09/23/2020 10:0 9 AM AMPOULE FILLER Body Mass Index 27.94 09/23/2020 10:09 AM AMPOULE FILLER Plan of Treatment Health Maintenance Due Date [...] age to complete this topic Care Teams Bull Ladle Tender Relationship Specialty Start Date End Date James Chen MD [address] [place] [id number] PCP - General Family Medicine 04/14/19
--- OUTSIDE RECORDS SUMMARY | 2024-09-26 19:25 | XMS_ITS | Clinical Summary ---
Author Organization [facility] Address [address] [place] [address] Phone Care Team Providers Care Networks Computer Consultant Name Role Phone Remy Armendariz MD Primary Care Provider [phone] Rbaia Lopez MD Unavailable Rosendo Johnson MD Unavailable [...] 23 Active Insulin Pen Needle (TRUEplus Pen [place]) 32G X 4 MM Misc 1 Pen [...] GLYCOSYLATED HEMOGLOBIN (01/25/2022 11:21 AM CDT) Pathologist [facility] HGB-A1C 7.7(A) 4 - 6 01/25/2022 11:2 1 AM CDT Rabia Lopez MD POINT OF CARE TESTING (MANUAL) F inal Result * (ABNORMAL) CMP (Comprehensive Metabolic Panel) (01/08/2022 4:49 PM CDT) [facility] SODIUM 134(L) 136 - 144 mmol/L 01/08/2022 5:25 PM CDT [facility] POTASSIUM 3.8 3.5 - 5.1 mmol/L 01/08/2022 5:25 PM CDT [facility] CHLORIDE 99(L) 100 - 110 mmol/L 01/08/2022 5:25 PM CDT [facility] CO2, VENOUS 23 22 - 32 mmol/L 01/08/2022 5:25 PM CDT [facility] ANION GAP 15.8 8.0 - 20.0 mmol/L 01/08/2022 5:25 PM CDT [facility] GLUCOSE 161(H) 70 - 99 mg/dL 01/08/2022 5:25 PM CDT [facility] BUN 13 6 - 20 mg/dL 01/08/2022 5:25 PM CDT [facility] CREATININE, BLOOD 0.68 0.60 - 1.10 mg/dL 01/08/2022 5:25 PM CDT [facility] BUN/CREATININE RATIO 19 12 - 20 ratio 01/08/2022 5:25 PM CDT [facility] TOTAL PROTEIN 6.9 6.0 - 8.3 g/dL 01/08/2022 5:25 PM CDT [facility] ALBUMIN 4.2 3.5 - 5.2 g/dL 01/08/2022 5:25 PM CDT [facility] Comment: The colormetric methods used for the determination of Albumin may lead to falsely elevated test results in patients suffering from renal failure or insufficiency due to interference with other proteins. A/G RATIO 1.6 1.0 - 2.0 01/08/2022 5:25 PM CDT [facility] CALCIUM 9.0 8.9 - 10.3 mg/dL 01/08/2022 5:25 PM CDT [facility] T BILI 0.5 <=1.2 mg/dL 01/08/2022 5:25 PM CDT [facility] SGOT (AST) 13 <=32 U/L 01/08/2022 5:25 PM CDT [facility] SGPT (ALT) 14 <=41 U/L 01/08/2022 5:25 PM CDT [facility] ALKALINE PHOSPHATASE 89 35 - 105 U/L 01/08/2022 5:25 PM CDT [facility] GFR, EST. NONAFRICAN >60 >=60 01/08/2022 5:25 PM CDT [facility] GFR, EST. >60 >=60 022 5:25 PM CDT [facility] Comment: Creatinine Clearance is the preferred criteria for selecting drug dose adjustments in renally impaired patients. The GFR is provided as additional pertinent clinical information. GFR is reported in mL/min/1.73 sq m. Blood Venipuncture / Unknown 01/08/2022 4:49 PM CDT 01/08/2022 4:58 PM CDT us Toni Holder MD CHEMISTRY ORDERABLES Final Resul t [facility] [address] [place] [address] from Last 3 Months or Most Recently Relevant to Health Maintenance Insurance MEDICAID [facility] Advance Directives * No CPR-Selective Treatment (Latest [...] measures to stabilize the patient. Care Teams Networks Computer Consultant Relationship Specialty Start Date End Date Reym Armendariz MD [address] [place] [id number] PCP - General Family Medicine 05/02/21 Rabia Lopez MD [address] [address] Consulting Physician Endocrinology 01/17/22 Rosendo Johnson MD [address] [address] Consulting Physician General Surgery 04/09/22
--- OUTSIDE RECORDS SUMMARY | 2024-09-26 19:25 | XMS_ITS | Referral Summary ---
Author Organization [facility] Address [address] [place] [id number] Care Team Providers Care Criminology Teacher Name Role Phone Remy Armendariz MD Primary Care Provider [phone] Allergies Active Allergy Reactions Criticality Noted Date [...] (05/23/2021): Added automatically from request for surgery [id number] Chest pain 04/27/2021 Assessment & Plan (04/27/2021 9:33 AM CDT): The patient has new exertional chest pain with multiple risk factors for coronary artery disease. We will reassess with a Lexiscan nuclear stress test. Cardiomyopathy 03/03/2020 Assessment & Plan (02/27/2024 9:22 AM CDT): Stable. Continue carvedilol and lisinopril. Assessment & Plan (08/08/2023 10:54 AM CENTRIFUGAL SUPERVISOR): Check echo. Increase carvedilol to 6.25 mg [...] recommended Assessment & Plan (08/08/2023 10:54 AM CENTRIFUGAL SUPERVISOR): Controlled with lisinopril and carvedilol. Assessment & [...] atorvastatin. Assessment & Plan (08/08/2023 10:54 AM CENTRIFUGAL SUPERVISOR): Continue atorvastatin. Abnormal cardiovascular stress test Immunizations [...] on file Legal Sex Female 7:24 PM CENTRIFUGAL SUPERVISOR Gender Identity Not on file Sexual Orientation [...] last revised on 2018. Chol/HDL ratio 9 [facility] Blood 02/21/2023 9:03 AM CDT 02/21/2023 12:57 PM CDT us John López MD LAB BLOOD ORDERABLES Final Res ult [facility] [id number] [address] Department [place] [address] * eGFR (05/24/2021 6:58 AM CDT) eGFR [...] ORDERABLES Final Res ult Performing Organization Address City/[facility]/ZIP Co de Phone Number ALL[facility] [phone] [address] Department of Laboratories [place], [place] [id number] * (ABNORMAL) Hemoglobin A1c (12/18/2017 9:40 AM CDT) Hgb A1C 11.5(H) 4.0 - 6.0 % [facility] Comment: Interpretive Data Hemoglobin A1c ADA Interpretive Guidelines <7% Glycemia controlled >8% Hyperglycemia, additional action recommended Karl Immunochemical Method Current interpretive data was last revised on 2016 [facility] [place] [address] Estimated Average Glucose 283 mg/dL [facility] Comment:Testing performed by : [facility], [place] [address] Blood specimen (specimen) 12/18/2017 9:40 AM CDT 12/18/2017 3:27 PM CDT Narrative [facility] - 12/18/2017 8:48 PM CDT us Mary Haq MD LAB BLOOD ORDERABLES Final Re sult Performing Organization Address [facility] Co de Phone Number [facility] [phone] [address] Department [place] [address] from Last 3 Months or Most Recently Relevant to Health Maintenance Insurance [facility] Advance Directives For more information, please contact: [phone] * Full Code (Latest Code Status on File) Date Activated Date Inactivated Comments 05/24/2021 12:40 PM 05/24/2021 5:45 PM * Full Code Date Activated Date Inactivated Comments 12/18/2017 11:02 PM 12/19/2017 1:48 PM * Full Code Date Activated Date Inactivated Comments 12/18/2017 11:02 PM 12/18/2017 11:02 PM * Full Code Date Activated Date Inactivated Comments 12/18/2017 11:02 PM 12/18/2017 11:02 PM Care Teams Criminology Teacher Relationship Specialty Start Date End Date Remy Armendariz MD PCP - General Family Medicine 04/27/21
--- OUTSIDE RECORDS SUMMARY | 2024-09-26 19:25 | XMS_ITS | Encounter Summary ---
Author Organization [facility] Address [address] [place] [address] Phone Care Team Providers Care Marketing Education Teacher Name Role Phone Remy Armendariz MD Primary Care Provider [phone] Rabia Lopez MD Unavailable Rosendo Johnson MD Unavailable Reason for Visit * Reason Comments Medication Refill Encounter Details Date Type Department Care Team (Late st Contact Info) Description 02/07/2023 Refill [facility]ology - [place] [address] [place] [address] Rabia Lopez MD [address] [address] Medication Refill Social History Tobacco [...] Misc [Pharmacy Med Name: BD PEN NEEDLE/BRIANDA [id number] MIS] 100 Each 0 Sig: USE 1 ONCE DAILY Next appt: Message sent to schedule follow up. documented in this encounter Plan of Treatment Not on file documented as of this encounter Visit Diagnoses Not on filedocumented in this encounter Care Teams Marketing Education Teacher Relationship Specialty Start Date End Date Remy Armendariz MD [address] [place] [id number] PCP - General Family Medicine 05/02/21 Rabia Lopez MD [address] [address] Consulting Physician Endocrinology 01/17/22 Rosendo Johnson MD [address] [address] Consulting Physician General Surgery 04/09/22 documented as of this encounter
--- OUTSIDE RECORDS SUMMARY | 2024-09-26 19:25 | XMS_ITS | Clinical Summary ---
Author Organization [facility] Address [address] [place] [id number] Care Team Providers Care Practice Billing Associate Name Role Phone Remy Armendariz MD Primary Care Provider [phone] Allergies Active Allergy Reactions Criticality Noted Date [...] (05/23/2021): Added automatically from request for surgery [id number] Chest pain 04/27/2021 Assessment & Plan (04/27/2021 9:33 AM CDT): The patient has new exertional chest pain with multiple risk factors for coronary artery disease. We will reassess with a Lexiscan nuclear stress test. Cardiomyopathy 03/03/2020 Assessment & Plan (02/27/2024 9:22 AM CDT): Stable. Continue carvedilol and lisinopril. Assessment & Plan (08/08/2023 10:54 AM LABORATORY GENETICIST): Check echo. Increase carvedilol to 6.25 mg [...] recommended Assessment & Plan (08/08/2023 10:54 AM LABORATORY GENETICIST): Controlled with lisinopril and carvedilol. Assessment & [...] atorvastatin. Assessment & Plan (08/08/2023 10:54 AM LABORATORY GENETICIST): Continue atorvastatin. Abnormal cardiovascular stress test Immunizations [...] Hypertension Hyperlipidemia Fatty liver Arrhythmia pt unsure RI (myocardial infarction) (HCC) GERD (gastroesophageal reflux disease) [...] on file Legal Sex Female 7:24 PM LABORATORY GENETICIST Gender Identity Not on file Sexual Orientation [...] LAB BLOOD ORDERABLES Final Res ult ALLEN [id number] [address] Department [place] [address] * eGFR (05/24/2021 6:58 AM CDT) eGFR [...] ORDERABLES Final Res ult Performing Organization Address [facility]/State/ZIP Co de Phone Number TOREYASHLEY [phone] [address] Department of Laboratories [place], [place] [id number] * (ABNORMAL) Hemoglobin A1c (12/18/2017 9:40 AM CDT) Hgb A1C 11.5(H) 4.0 - 6.0 % ALLEN Comment: Interpretive Data Hemoglobin A1c ADA Interpretive Guidelines <7% Glycemia controlled >8% Hyperglycemia, additional action recommended Karl Immunochemical Method Current interpretive data was last revised on 2016 Testing performed by: [facility], [place] [address] Estimated Average Glucose 283 mg/dL ALLEN Comment:Testing performed by : [facility], [address], [place] [address] Blood specimen (specimen) 12/18/2017 9:40 AM CDT 12/18/2017 3:27 PM CDT Narrative ALLEN - 12/18/2017 8:48 PM CDT Mary Haq MD LAB BLOOD ORDERABLES Final Re sult Performing Organization Address [facility] Co de Phone Number ALLEN [phone] [address] Department [place] [address] from Last 3 Months or Most Recently Relevant to Health Maintenance Insurance [employer] Advance Directives For more information, please contact: [phone] * Full Code (Latest Code Status on File) Date Activated Date Inactivated Comments 05/24/2021 12:40 PM 05/24/2021 5:45 PM * Full Code Date Activated Date Inactivated Comments 12/18/2017 11:02 PM 12/19/2017 1:48 PM * Full Code Date Activated Date Inactivated Comments 12/18/2017 11:02 PM 12/18/2017 11:02 PM * Full Code Date Activated Date Inactivated Comments 12/18/2017 11:02 PM 12/18/2017 11:02 PM Care Teams Practice Billing Associate Relationship Specialty Start Date End Date Remy Armendariz MD PCP - General Family Medicine 04/27/21
--- OUTSIDE RECORDS SUMMARY | 2024-09-26 19:25 | XMS_ITS | Patient Health Summary ---
Author Organization [facility] Address [address] [place] [address] Care Team Providers Care Electroplater Automatic Name Role Phone James Chen MD Primary Care Provider [phone] Note from [facility],non-owned Affiliates and Associated Physician Practices is amultiple site organization consisting of ambulatory clinics and hospital sitesin [place], [place], [place] and [place]. This disclosure is being madepursuant to the Care Everywhere program and may not contain all information available regarding this patient. Last updated 18.[facility] [employer] Allergies * Coconut Flavor(Swelling) * Tramadol(Cardiac Injury) -High Criticality Medications * Be aware that medications may not be up to date on this document. Alwaysverify current medications with the patient. * Ascorbic Acid 1000 MG * B Complex Vitamins (VITAMIN-B COMPLEX PO) * Bchmtpa-Ejvradxph-Fcsqnqt D 500-250-125 MG-MG-UNIT TABS * aspirin (ASPIRIN) [...] Comments Blood Pressure 138/62 09/23/2020 10:09 AM INHALATION THERAPY AIDE Pulse 80 09/23/2020 10:09 AM INHALATION THERAPY AIDE Temperature 36.7 C (98 F) 09/23/2020 10:09 AM INHALATION THERAPY AIDE Respiratory Rate 16 09/23/2020 10:0 9 AM INHALATION THERAPY AIDE Oxygen Saturation 98% 09/23/2020 10: 09 AM INHALATION THERAPY AIDE Inhaled Oxygen Concentration - - Weight 73.8 kg (162 lb 12.8 oz) 021 10:09 AM INHALATION THERAPY AIDE Height 162.6 cm (5' 4 ) 09/23/2020 10:0 9 AM INHALATION THERAPY AIDE Body Mass Index 27.94 09/23/2020 10:09 AM INHALATION THERAPY AIDE Procedures * ESOPHAGUS, GASTROESOPHAGEAL REFLUX TEST; WITH NASAL CATHETER PH ELECTRODE PLACEMENT(Performed 04/14/2019) Performed for Hiatal hernia, Nausea and vomiting, intractability of vomiting not specified, unspecified vomiting type, Gastroesophageal reflux disease, esophagitis presence not specified * MOTILITY ESOPHAGEAL(Performed 04/14/2019) Performed for Hiatal hernia, Nausea and vomiting, intractability of vomiting not specified, unspecified vomiting type, Gastroesophageal reflux disease, esophagitis presence not specified Care Teams Electroplater Automatic Relationship Specialty Start Date End Date James Chen MD [address] [place] [id number] PCP - General Family Medicine 04/14/19
--- OUTSIDE RECORDS SUMMARY | 2024-09-26 19:25 | XMS_ITS | Clinical Summary ---
Author Organization [facility] Address [address] [place] [address] Care Team Providers Care Finisher Cold Rolling Name Role Phone James Chen MD Primary Care Provider [phone] Allergies Active Allergy Reactions Criticality Noted Date [...] Problems Problem Noted Date Diagnosed Date Diabetes ([facility]) 11/26/2018 Hypertension 11/26/2018 Hyperlipidemia 11/26/2018 GERD (gastroesophageal [...] complication, without long-term current use of insulin ([facility]) 01/14/2017 Dyspnea on exertion 01/14/2017 Chest pain, [...] complete this topic Insurance MEDICAID Care Teams Finisher Cold Rolling Relationship Specialty Start Date End Date James Chen MD [address] [place] [address] PCP - General FAMILY PRACTICE 11/19/18
[2024-09-26 19:27] LABS: D Dimer 0.19 mg/L (0.19-0.50); INR 0.9; Partial Thromboplastin Time 29.1 Sec (23.9-30.70); Prothrombin Time 10.5 Seconds (9.50-12.1)
[2024-09-26 19:35] LABS: Alanine Aminotransferase 27 U/L (14-59); Albumin Level 2.6 g/dL (3.4-5.0); Alkaline Phosphatase 208 U/L (46-116); Anion Gap 9 mmol/L (4-12); Aspartate Amino Transferase 11 U/L (15-37); Bilirubin,Total 0.2 mg/dL (0.00-1.00); Blood Urea Nitrogen 18 mg/dL (7-18); Calcium 8.3 mg/dL (8.5-10.1); Carbon Dioxide 28 mmol/L (21-32); Chloride 102 mmol/L (98-108); Estimated CRCL calculation 47 ml/min; Estimated Glomerular Filt Rate 52; Glucose 345 mg/dL (70-99); Lipase 84 U/L (16-77); NT Pro B Type Natriuretic Pept 1494 pg/mL (0-125); Osmolality Calculated 303 mOsm/kg (285-295); Potassium 4.1 mmol/L (3.5-5.1); Sodium 139 mmol/L (136-145); Total Protein 6.3 g/dL (6.4-8.2); Troponin I 19.9 ng/L (0.00-60.4)
[2024-09-26] MEDS: FUROSEMIDE INJ 20 MG/2 ML VIAL IV PUSH (20:29)
[2024-09-26] MEDS: ASPIRIN 81 MG CHEWABLE TABLET PO (20:37)
--- NOTE | 2024-09-26 20:40 | PC.NURSE ---
PATIENT AMBULATED TO THE BATHROOM FOR URINE SAMPLE
--- NOTE | 2024-09-26 21:30 | PC.NURSE ---
PATIENT HAS AMBULATED TO THE BATHROOM SEVERAL TIMES. WOB NON LABORED. STEADY GAIT.
[2024-09-26 21:50] LABS: Add Urine Microscopic? YES; Appearance Urine Clear (Clear); Bilirubin Urine Negative (Negative); Blood Urine 1+ (Negative); Color Urine Light Yellow (Yellow); Glucose Urine UA 3+ (Negative); Ketones Urine Negative (Negative); Leukocyte Esterase Ur Negative LEU/UL (Negative); Nitrate Urine Negative (Negative); Protein Urine 3+ (Negative); Specific Grav Ur 1.025 (1.010-1.020); Urobilinogen Urine 0.2 mg/dL (0.2-1.0); pH Urine 6.5 (5.0-8.0)
--- NOTE | 2024-09-26 22:04 | PC.NURSE ---
DR SWEENEY AT THE BEDSIDE
[2024-09-26 23:07] LABS: Amorphous Sediment Urine Few; Squamous Epithelial Cell Urine Moderate /hpf (Few)
== END 2024-09-26 22:26 | disposition home or self-care (01) ==
PROVIDERS: Emergency Provider Emergency Medicine; PCP Family Medicine
DX: I50.9 Heart failure, unspecified (principal); R07.89 Other chest pain; I25.10 Atherosclerotic heart disease of native coronary artery without angina pectoris; J44.9 Chronic obstructive pulmonary disease, unspecified; I25.2 Old myocardial infarction
CPT/HCPCS: 36415; 71045; 80053; 81001; 83690; 83880; 84484; 85025; 85380; 85610; 85730; 93005; 96374; 99284; A9270; J1940

== ENCOUNTER 2025-03-06 06:04 | Emergency (ER) | payer OTHER, SELFPAY ==
--- NOTE | ~2025-03-06 | XR_ITS ---
EXAMINATION: XR chest 1V portable DATE: 03/06/2025 06:49 INDICATION: Left-sided chest pain TECHNIQUE: frontal view of the chest was obtained. COMPARISON: Chest radiograph dated 09/25/2024 FINDINGS: The lungs remain clear with no focal airspace opacities, pulmonary edema, pleural effusion or pneumot horax. The cardiomediastinal silhouette is normal. Incidental prominent hypertrophic changes at the a nterior bilateral first ribs. IMPRESSION: 1. No acute cardiopulmonary disease. Reviewed, dictated and finalized at location A.
[2025-03-06 06:04] VITALS: BP 129/58; PULSE 78; PULSE 81; RESP 16; TEMP 35.7; O2SAT 96
--- OUTSIDE RECORDS SUMMARY | 2025-03-06 06:07 | XMS_ITS | Clinical Summary ---
Author Organization [facility] Address [address] [place] [address] Care Team Providers Care Machining Department Supervisor Name Role Phone James Chen MD Primary Care Provider [phone] Source Comments [facility],non-owned Affiliates and Associated Physician Practices is amultiple site organization consisting of ambulatory clinics and hospital sitesin [place], [place], [place] and [place]. This disclosure is being madepursuant to the Care Everywhere program and may not contain all information available regarding this patient. Last updated 18.[facility] Allergies Active Allergy Reactions Criticality Noted Date Comments Coconut Flavor Swelling 09/23/2020 Tramadol Cardiac Injury High 08/13/2016 Medications * Be aware that medications may not be up to date on this document. Alwaysverify current medications with the patient. Ascorbic Acid 1000 MG Active B Complex Vitamins (VITAMIN-B COMPLEX PO) Active Calcium-Magnesiu m-Vitamin D 500-250-125 MG-MG-UNIT TABS Acti ve aspirin (ASPIRIN) 81 MG tablet Take 81 [...] = 0.6 oz pur e alcohol) Comments No Sex and Gender Information Value Date Recorded Sex Assigned at Not on file Legal Sex Female 12:00 PM HEARING THERAPIST Gender Identity Not on file Sexual Orientation Not on file Last Filed Vital Signs Vital Sign Reading Time Taken Comments Blood Pressure 138/62 09/23/2020 10:09 AM HEARING THERAPIST Pulse 80 09/23/2020 10:09 AM HEARING THERAPIST Temperature 36.7 C (98 F) 09/23/2020 10:09 AM HEARING THERAPIST Respiratory Rate 16 09/23/2020 10:0 9 AM HEARING THERAPIST Oxygen Saturation 98% 09/23/2020 10: 09 AM HEARING THERAPIST Inhaled Oxygen Concentration - - Weight 73.8 kg (162 lb 12.8 oz) 021 10:09 AM HEARING THERAPIST Height 162.6 cm (5' 4) 09/23/2020 10:0 9 AM HEARING THERAPIST Body Mass Index 27.94 09/23/2020 10:09 AM HEARING THERAPIST Plan of Treatment Health Maintenance Due Date [...] series) 1985 PNEUMOCOCCAL VACCINE 50+ (1 of 1 - PCV) 2016 ZOSTER VACCINE (1 of 2) 2016 SCREENING FOR DIABETES 02/08/2022 02/08/2019 COVID-19 VACCINE (1 - 2023-2 5 season) 2024 DEPRESSION SCREENING 08/04/2024 INFLUENZA VACCINE (#1) 2025 06/05/2011 HIB VACCINE Aged Out No longer eligi ble based on patient's age to complete this topic HPV VACCINE Aged Out No longer eligi ble based on patient's age to complete this topic MENINGOCOCCAL (Group B) VACC INE SHARED DECISION-MAKING Aged Out No longer eligibl e based on patient's age to complete this topic MENINGOCOCCAL GROUPS A/C/Y/W VACCINE Aged Out No longer eligible b ased on patient's age to complete this topic Insurance [facility] Care Teams Machining Department Supervisor Relationship Specialty Start Date End Date James Chen MD [address] [place] [id number] PCP - General Family Medicine 04/14/19
--- OUTSIDE RECORDS SUMMARY | 2025-03-06 06:07 | XMS_ITS | Encounter Summary ---
Author Organization [facility] Address [address] [place] [address] Phone Care Team Providers Care Gift Consultant Name Role Phone Remy Armendariz MD Primary Care Provider Rabia Lopez MD Unavailable Rosendo Johnson MD Unavailable Reason for Visit * Reason Comments Medication Refill Encounter Details Date Type Department Care Team (Late st Contact Info) Description 02/07/2023 Refill [facility] - Endocrinology - [place] [address] [place] [address] Rabia Lopez MD [address] [phone] Medication Refill Social History Tobacco [...] Misc [Pharmacy Med Name: BD PEN NEEDLE/BRIANDA [id number] MIS] 100 Each 0 Sig: USE 1 ONCE DAILY Next appt: Message sent to schedule follow up. documented in this encounter Plan of Treatment Not on file documented as of this encounter Visit Diagnoses Not on filedocumented in this encounter Care Teams Gift Consultant Relationship Specialty Start Date End Date Remy Armendariz MD [address] [place] [id number] PCP - General Family Medicine 05/02/21 Rabia Lopez MD [address] [id number] Consulting Physician Endocrinology 01/17/22 Rosendo Johnson MD [address] [id number] Consulting Physician General Surgery 04/09/22 documented as of this encounter
--- OUTSIDE RECORDS SUMMARY | 2025-03-06 06:07 | XMS_ITS | Clinical Summary ---
Author Organization [facility] Address [address] [place] [id number] Care Team Providers Care Priming Mixture Carrier Name Role Phone Remy Armendariz MD Primary Care Provider [phone] Allergies Active Allergy Reactions Criticality Noted Date Comments Latex Rash Medium 03/03/2020 Tramadol Other (See comments),Vomiting Low 2016 CHEST PAIN Medications cholestyramine/as partame (CHOLESTYRAMINE LIGHT ORAL) Take by [...] Active TRUEplus Pen Needle 32 gauge x /32 needle 4 Active benzonatate (TESSALON) 200 mg [...] 10. 30 capsule 4 Active carvediloL (COREG) 12.5 mg tablet Take 1 tablet (12.5 mg total) by mouth 2 (two) times a day with meals 180 tablet 3 5 09/30/19 26 Active spironolactone (ALDACTONE) 25 mg tablet Take 1 tablet (25 mg total) by mouth daily 90 tablet 3 5 11/16/19 26 Active furosemide (LASIX) 40 mg tablet Take 1 tablet (40 mg total) by mouth daily 90 tablet 3 5 11/16/19 26 Active sacubitriL-valsar plunkett (ENTRESTO) 24-26 mg tabletIndications :chronic heart failure Take 1 tablet by mouth 2 (two) times a day 180 tablet 3 5 02/01/20 26 Active Hospital, Clinic, or Other Facility Administered Medication Ordered Dose Route Frequency Start Date End Date Status Tc-99m sestamibi unit dose injection 10.22 millicurieIndicatio ns:Diagnostic Radiography 10.22 millicurie IV Once in imaging 02/22/2025 02/22/2025 En ded regadenoson (LEXISCAN) 0.4 mg/5 mL injection 0.4 mgIndications:Myoca rdial Perfusion Imaging Adjunct 0.4 mg IV Once 02/22/2025 02/22/2025 Ended Tc-99m sestamibi unit dose injection 38.24 millicurieIndicatio ns:Diagnostic Radiography 38.24 millicurie IV Once in imaging 02/22/2025 02/22/2025 En ded Active Problems Problem Noted Date Diagnosed Date Abnormal EKG 05/23/2021 Overview (05/23/2021): Added automatically from request for surgery [id number] Chest pain 04/27/2021 Assessment & Plan (01/31/2025 10:36 AM CDT): Atypical for angina but we will check a Lexiscan stress test because it has been greater than 3 years. Assessment & Plan (04/27/2021 9:33 AM CDT): The patient has new exertional chest pain with multiple risk factors for coronary artery disease. We will reassess with a Lexiscan nuclear stress test. Cardiomyopathy 03/03/2020 Assessment & Plan (01/31/2025 10:36 AM CDT): Continue current therapy which includes carvedilol, Entresto, spironolactone. Check follow-up echocardiogram Assessment & Plan (11/29/2024 10:37 AM CDT): Compensated. Continue current medications which include carvedilol, Entresto, Assessment & Plan (11/15/2024 10:19 AM CDT): Continue Entresto 49-51 b.i.d. add spironolactone 25 mg daily. Increase furosemide to 40 mg daily. Assessment & Plan (11/01/2024 9:54 AM CDT): Up titrate Entresto to 49-51 bid RTC 2 weeks. Assessment & Plan (10/18/2024 10:11 AM CDT): Discontinue lisinopril for 48 hours. Start Entresto 11/21/2025 b.i.d. return to clinic in 2 weeks Assessment & Plan (09/30/2024 2:47 PM PRIVATE DUTY NURSE): Reassess LV function with echocardiogram. Increase carvedilol to 12.5 mg b.i.d. as her blood pressure still elevated and her resting pulse is about 90. Assessment & Plan (02/27/2024 9:22 AM CDT): Stable. Continue carvedilol and lisinopril. Assessment & Plan (08/08/2023 10:54 AM PRIVATE DUTY NURSE): Check echo. Increase carvedilol to 6.25 mg [...] and lisinopril. Hypertension 03/03/2020 Assessment & Plan (09/30/2024 2:47 PM PRIVATE DUTY NURSE): Increase carvedilol to 12.5 mg b.i.d. Assessment & Plan (02/27/2024 9:23 AM CDT): Controlled with carvedilol and lisinopril. No changes recommended Assessment & Plan (08/08/2023 10:54 AM PRIVATE DUTY NURSE): Controlled with lisinopril and carvedilol. Assessment & Plan (04/27/2021 9:33 AM CDT): Controlled with current medications. 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 Continue to follow. Assessment & Plan (02/27/2024 9:24 AM CDT): Asymptomatic. No signs of advanced heart block. Continue to monitor. Assessment & Plan (12/13/2022 11:08 AM CDT): Stable and unchanged. 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 Assessment & Plan (12/13/2022 11:08 AM CDT): Check lipid panel, continue atorvastatin. Vitamin D deficiency 12/18/2013 Overview (11/08/2016): VITAMIN D DEFICIENCY NOS Pure hypercholesterolemia 12/18/2013 Overview (11/08/2016): PURE HYPERCHOLESTEROLEM Assessment & Plan (09/30/2024 2:47 PM PRIVATE DUTY NURSE): Continue atorvastatin. Assessment & Plan (02/27/2024 9:23 AM CDT): Continue atorvastatin. Assessment & Plan (08/08/2023 10:54 AM PRIVATE DUTY NURSE): Continue atorvastatin. Abnormal cardiovascular stress test Encounters Date Type Department Care Team Description 02/28/2025 Results Follow-Up [facility] [address] [place] [phone] Alyssa Agee RT NM MPI SPECT (Rest and/or Stress) Multiple Studies 02/22/2025 9:00 AM CDT Ancillary Procedure [facility] [address] [place] [phone] Right bundle branch block (RBBB) with left anterior fascicular block (LAFB); Precordial pain; Dilated cardiomyopathy (HCC) 02/22/2025 8:00 AM CDT Ancillary Procedure [facility] [address] [place] [phone] Dilated cardiomyopathy (HCC) 01/31/2025 10:15 AM CDT Office Visit [facility] [address] [place] [phone] Andre López MD Right bundle branch block (RBBB) with left anterior fascicular block (LAFB) (Primary Dx); Precordial pain; Dilated cardiomyopathy (HCC); Pure hypercholesterolemia 12/13/2024 Orders Only [facility] Assistant [address] [place] [address] [address] [place] [address] Andre López MD 12/13/2024 Telephone [facility] Assistant [id number] [place] [address] [address] [place] [phone] Destiny King 12/06/2024 Orders Only [facility] Assistant [address] [place] [address] [address] [place] [phone] Provider, MD Sonali from Last 3 Months Immunizations Immunization Administration Dates Next Due Influenza, [...] mellitus; Comments: uncontrolled Type 2 diabetes mellitus Diabete s type 2 Hypertension Hyperlipidemia Fatty liver Arrhythmia pt unsure [place] (myocardial infarction) (HCC) GERD (gastroesophageal reflux disease) [...] on file Legal Sex Female 7:24 PM PRIVATE DUTY NURSE Gender Identity Not on file Sexual Orientation Not on file Obstetrics History Last Filed Vital Signs Vital Sign Reading Time Taken Comments Blood Pressure 127/66 01/31/2025 9:57 AM CDT Pulse 80 11/29/2024 9:47 AM CDT Temperature 36.8 C (98.2 F) 04/09/2024 10:57 AM CDT Respiratory Rate 16 01/31/2025 9:57 AM CDT Oxygen Saturation 96% 01/31/2025 9:57 AM CDT Inhaled Oxygen Concentration - - Weight 69.4 kg (153 lb) 01/31/2025 9:57 AM CDT Height 162.6 cm (5' 4) 04/09/2024 10:57 AM CDT Body Mass Index 26.26 04/09/2024 10:57 AM CDT Plan of Treatment [...] Hemoglobin A1C 06/20/2018 12/18/2017 eGFR 05/24/2022 05/24/2021, 0808/2019, 12/10/2018, Additional history exists Lipid Panel 02/22/2024 02/21/2023 Covid-19 Vaccine (3 - 2023-2 5 season) 2024 11/11/2020, 10/14/2020 Influenza Vaccine (#1) 2025 06/05/2011 DTaP/Tdap/Td Vaccine (2 - Td or Tdap) 03/22/2033 03/22/2023 Procedures Procedure Name Priority Date/Time Associated Diagnosis Comments NM MPI SPECT (REST AND/OR STRESS) MULTIPLE STUDIES Schedule Routine, Read Routine (OP Routine) 02/22/2025 11:53 AM CDT Right bundle branch block (RBBB) with left anterior fascicular block (LAFB) Precordial pain Dilated cardiomyopathy (HCC) TRANSTHORACIC ECHO (TTE) COMPLETE W DOPPLER/CF WO CONTRAST Routine 02/22/2025 8:42 AM CDT Dilated cardiomyopathy (HCC) BMP-MANUAL Routine 12/06/2024 8:50 AM CDT LIPID PANEL Routine 02/21/2023 9:03 AM CDT Cardiomyopathy, unspecified type (HCC) EGFR STAT 05/24/2021 6:58 AM CDT HEMOGLOBIN A1C Routine 12/18/2017 9:40 AM CDT from Last 3 Months or Most Recently Relevant to Health Maintenance Results * NM MPI SPECT (Rest and/or Stress) Multiple Studies (02/22/2025 11:53 AM CDT) Anatomical Region Laterality Modality Body N/A Nuclear Medicine Narrative 02/25/2025 4:47 PM CDT Table formatting from the original result was not included. Images from the original result were not included. Nuclear Vasodilator One Day Rest/Stress Test Requesting Provider: Andre López MD Supervising Provider: Andre López MD Interpreting Physician: Keegan Diallo MD Technologist: Alyssa Agee [facility] Adelita Alexis 59 y.o. female (: 1965) Ht: 64 in Wt: 150 lb Hours since last meal/Caffeine: 14+ Activity Level: Low REASON FOR PERFORMING TEST: CP/SOB/Cardiomyopathy Active Chest Pain: Absent Abnormal ECG: Absent Known CAD: Previous [place] RISK FACTORS: Hypertension: Yes Hypercholesterolemia: Yes Diabetes:Yes Smoking History: Current Tobacco User Family History of premature CAD: Yes Medication List: Current Outpatient Medications Medication Sig Dispense Refill acetaminophen (TYLENOL) 500 mg tablet Take 1 tablet (500 mg total) by mouth every 6 (six) hours as needed atorvastatin (LIPITOR) 40 mg tablet Take 1 tablet by mouth once daily 90 tablet 3 benzonatate (TESSALON) 200 mg capsule Take 1 capsule (200 mg total) by mouth 3 (three) times a day as needed for cough keep tessalon out of reach of children, especially children under the age of 10, due to possible serious risk such as if ingested by children under the age of 10. 30 capsule 0 carvediloL (COREG) 12.5 mg tablet Take 1 tablet (12.5 mg total) by mouth 2 (two) times a day with meals 180 tablet 3 cholestyramine/aspartame (CHOLESTYRAMINE LIGHT ORAL) Take by mouth dulaglutide (TRULICITY) 0.75 mg/0.5 mL pen injector Inject 0.5 mL (0.75 mg total) under the skin every 7 days famotidine (PEPCID) 40 mg tablet Take 1 tablet (40 mg total) by mouth daily PRN furosemide (LASIX) 40 mg tablet Take 1 tablet (40 mg total) by mouth daily 90 tablet 3 insulin glargine 100 unit/mL vial for injection Inject 30 Units under the skin daily nicotine (NICODERM CQ) [address] 1 patch on the skin daily as needed ondansetron (ZOFRAN) 4 mg tablet Take 1 tablet (4 mg total) by mouth every 8 (eight) hours sacubitriL-valsartan (ENTRESTO) 24-26 mg tablet Take 1 tablet by mouth 2 (two) times a day 180 tablet 3 spironolactone (ALDACTONE) 25 mg tablet Take 1 tablet (25 mg total) by mouth daily 90 tablet 3 TRUEplus Pen Needle 32 gauge x 5/32 needle No current facility-administered medications for this visit. Resting EKG: Sinus Rhythm, LAFB, RBBB Blood Pressure Heart Rate Pretest 138/62 81 Injection 0.4 mg Lexiscan 2 min 94/54 98 4 min 93/53 98 6 min 95/54 95 7 min 93/49 93 8 min 9 min 10 min 101/52 106/54 105/54 95 92 95 Comments/ Symptoms: lightheaded, stomach Time of Nuclear Tracer: during peak exercise at the 34 sec roberto carlos Max HR: 99 HR Reactivity: 22% RESULTS: 1. Lexiscan vasodilator stress ECG negative for ischemia. 2. Lexiscan-induced side effects: lightheaded, stomach 3. Heart Rate Reactivity: Normal 4. Induced arrhythmias noted: No. Myocardial Perfusion Imaging Rest/Stress/SPECT/Gated Imaging and Ejection Fraction Measurement Radiopharmaceuticals used: Tc-99m sestamibi IV(LT Arm) 10.22 mCi (rest) and 38.24 mCi (stress) Technique: Standard myocardial perfusion images were obtained at least 30-40 minutes after resting intravenous injection of Tc-99m sestamibi IV. Subsequently, a pharmacological stress test was performed under the supervision of the parquetry floor layer, the results of which are above. The patient received 5ml Lexiscan (0.4mg Regadenoson) over 10-12 seconds followed by a 5ml saline flush and then Tc-99m sestamibi was injected intravenously followed by another 5ml saline flush. Standard myocardial images were obtained 30-45 minutes later. Findings: Image quality is technically adequate with no appreciable patient motion. There is a small, fixed perfusion defect of mild severity at the apex of the left ventricle. The computer estimated left ventricular ejection fraction is 38% (resting) and 22% (post-stress). Visual inspection of gated SPECT images confirm enlarged left ventricular volumes (185/144 ml), depressed contractility and wall thickening. Visually confirmed ejection fraction is <30%. Opinion: 1. Left Ventricle Perfusion: Small apical infarct. 2. Left Ventricle Function: Enlargement and hypertrophy with severely depressed systolic function (post-stress ejection fraction is visually confirmed at <30%). 3. Compared to the previous study dated 05/15/2021, the LV function has further declined. The inferior ischemia is no longer seen. Myocardial Perfusion Imaging has an overall predictive accuracy of 85-90%. The sensitivity of the test is significantly diminished with submaximal stress. us Andre López MD IMG NM PROCEDURES Final Result * TRANSTHORACIC ECHO (TTE) COMPLETE W DOPPLER/CF WO CONTRAST (02/22/2025 8:42 AM CDT) EF Mod BP 42 % CONS SCIMAGE Anatomical Region Laterality Modality Ultrasound 02/22/2025 8:18 AM CDT Narrative 02/22/2025 8:59 AM CDT [facility] [id number] [place] [address] Echocardiogram Report Patient Name: ADELITA ALEXIS F : 1965 Study Date: 02/22/2025 8:18:13 AM Gender: F Tech: AG Ref Provider: ANDRE LÓPEZ Height(Cm): 162.6 BSA: 1.77 Weight(Kg): 69.4 Heart Rate: 87 BMI: 26.25 BP: 127/66 Quality: Good Order Provider: ANDRE LÓPEZ PROCEDURES: Echocardiographic Report: Transthoracic echocardiogram with complete 2D, M-Mode, and color Doppler examination. INDICATIONS: I42.0 Dilated cardiomyopathy. MEASUREMENTS: 2D/MM Value Range Doppler Value Range EF Teich 2D 42.0 percent [ 54.0 - 74.0 ] ZE Vmax 1.85 cm2 EF Mod BP 42 % [ 54 - 74 ] AV Mean PG 5 mmHg LVIDd 2D 5.15 cm [ 3.80 - 5.20 ] AV Peak Dieter 1.49 m/s [ 1.00 - 1.70 ] LVIDs 2D 4.01 cm [ 2.20 - 3.50 ] AV VTI 33.53 cm LVPWd 2D 1.14 cm [ 0.60 - 0.90 ] LVOT Diam 1.98 cm IVSd 2D 1.20 cm [ 0.60 - 0.90 ] LVOT Peak Dieter 0.89 m/s [ 0.70 - 1.10 ] LA Dimension MM 3.63 cm [ 2.70 - 3.80 ] LVOT VTI 22.84 cm AoR Diam MM 2.97 cm [ 2.70 - 3.70 ] MV E Peak Dieter 0.89 m/s [ 0.60 - 1.30 ] ACS MM 1.41 cm MV A Peak Dieter 1.25 m/s [ 1.00 - 1.20 ] MV Mean PG 3 mmHg MV PHT 71 msec [ 20 - 100 ] MVA PHT 3.10 cm2 PV Peak Dieter 0.78 m/s [ 0.40 - 0.80 ] TR Peak Dieter 1.99 m/s [ 1.00 - 2.80 ] TR Peak PG 16 mmHg 2D/MM Value Range Doppler Value Range - FINDINGS: Atrial Septum: Normal atrial septum. Left Ventricle: Normal left ventricular size. Mild concentric left ventricular hypertrophy. Mild global left ventricular systolic dysfunction. Impaired diastolic relaxation Grade I. Ejection fraction is measured at 42 %. Global Strain = -10.9%. Left Atrium: The left atrium is normal in size. Right Ventricle: Normal right ventricular size. Normal right ventricular systolic function. Right Atrium: The right atrium is normal in size. Aortic Valve: Normal structure of the aortic valve. Mitral Valve: Normal structure of the mitral valve. Pulmonic Valve: Normal structure of the pulmonic valve. Tricuspid Valve: Normal structure of the tricuspid valve. Normal right ventricular systolic pressure. Pericardium: Normal pericardium with no significant pericardial effusion. Aorta: Normal aortic root. IVC: Normal size and normal respiratory collapse consistent with normal right atrial pressure (<5 mmHg). Pulmonary Artery: Normal pulmonary artery size. CONCLUSIONS: Normal left ventricular size. Mild concentric left ventricular hypertrophy. Mild global left ventricular systolic dysfunction. Impaired diastolic relaxation Grade I. Ejection fraction is measured at 42 %. Global Strain = -10.9%. Normal Doppler with normal valvular structure and function. Electronically Signed By: Andre López MD, [facility] 02/22/2025 8:58:53 AM CDT Procedure Note Andre López MD - 02/22/2025 [facility] Assistant [id number] [place] [address] Echocardiogram Report Patient Name: ADELITA ALEXIS F : 1965 Study Date: 02/22/2025 8:18:13 AM Gender: F Tech: AG Ref Provider: ANDRE LÓPEZ Height(Cm): 162.6 BSA: 1.77 Weight(Kg): 69.4 Heart Rate: 87 BMI: 26.25 BP: 127/66 Quality: Good Order Provider: ANDRE LÓPEZ PROCEDURES: Echocardiographic Report: Transthoracic echocardiogram with complete 2D, M-Mode, and color Dopplerexamination. INDICATIONS: I42.0 Dilated cardiomyopathy. MEASUREMENTS: 2D/MM Value Range DopplerValue Range EF Teich 2D 42.0 percent [ 54.0 - 74.0 ] ZE Vmax1.85 cm2 EF Mod BP 42 % [ 54 - 74 ] AV Mean PG 5mmHg LVIDd 2D 5.15 cm [ 3.80 - 5.20 ] AV Peak Vel1.49 m/s [ 1.00 - 1.70 ] LVIDs 2D 4.01 cm [ 2.20 - 3.50 ] AV VTI33.53 cm LVPWd 2D 1.14 cm [ 0.60 - 0.90 ] LVOT Diam1.98 cm IVSd 2D 1.20 cm [ 0.60 - 0.90 ] LVOT Peak Vel0.89 m/s [ 0.70 - 1.10 ] LA Dimension MM 3.63 cm [ 2.70 - 3.80 ] LVOT VTI22.84 cm AoR Diam MM 2.97 cm [ 2.70 - 3.70 ] MV E Peak Vel0.89 m/s [ 0.60 - 1.30 ] ACS MM 1.41 cm MV A Peak Vel1.25 m/s [ 1.00 - 1.20 ] MV Mean PG 3 mmHg MV PHT 71 msec [ 20 - 100 ] MVA PHT 3.10 cm2 PV Peak Dieter 0.78 m/s [ 0.40 - 0.80 ] TR Peak Dieter 1.99 m/s [ 1.00 - 2.80 ] TR Peak PG 16 mmHg 2D/MM Value Range DopplerValue Range - FINDINGS: Atrial Septum: Normal atrial septum. Left Ventricle: Normal left ventricular size. Mild concentric left ventricularhypertrophy. Mild global left ventricular systolic dysfunction. Impaired diastolic relaxation GradeI. Ejection fraction is measured at 42 %. Global Strain = -10.9%. Left Atrium: The left atrium is normal in size. Right Ventricle: Normal right ventricular size. Normal right ventricular systolicfunction. Right Atrium: The right atrium is normal in size. Aortic Valve: Normal structure of the aortic valve. Mitral Valve: Normal structure of the mitral valve. Pulmonic Valve: Normal structure of the pulmonic valve. Tricuspid Valve: Normal structure of the tricuspid valve. Normal right ventricular systolicpressure. Pericardium: Normal pericardium with no significant pericardial effusion. Aorta: Normal aortic root. IVC: Normal size and normal respiratory collapse consistent with normal rightatrial pressure (<5 mmHg). Pulmonary Artery: Normal pulmonary artery size. CONCLUSIONS: Normal left ventricular size. Mild concentric left ventricularhypertrophy. Mild global left ventricular systolic dysfunction. Impaired diastolic relaxation GradeI. Ejection fraction is measured at 42 %. Global Strain = -10.9%. Normal Doppler with normal valvular structure and function. Electronically Signed By: Andre López MD, [facility] 02/22/2025 8:58:53 AM CDT Andre López MD CV ECHO PROCEDURES Final Resul t * BMP-manual (12/06/2024 8:50 AM CDT) Historical Provider LAB BLOOD ORDERABLES Fatoumata l Result * (ABNORMAL) Lipid panel (02/21/2023 9:03 AM [...] revised on 2018. Chol/HDL ratio 9 [facility] Blood 02/21/2023 9:03 AM CDT 02/21/2023 12:57 PM CDT us Andre López MD LAB BLOOD ORDERABLES Final Res ult ALLEN [id number] [place] [address] * eGFR (05/24/2021 6:58 AM CDT) eGFR [...] AM CDT 05/24/2021 7:02 AM CDT us Andre López MD LAB BLOOD ORDERABLES Final Res ult TOREYASHLEY [id number] Department of Laboratories [place], [place] [id number] * (ABNORMAL) Hemoglobin A1c (12/18/2017 9:40 AM CDT) Hgb A1C 11.5(H) 4.0 - 6.0 % [facility] FORTE Comment: Interpretive Data Hemoglobin A1c ADA Interpretive Guidelines <7% Glycemia controlled >8% Hyperglycemia, additional action recommended Karl Immunochemical Method Current interpretive data was last revised on 2016 [facility] [address] [place] [address] Estimated Average Glucose 283 mg/dL [facility] FORTE Comment:[facility] : [facility] [place] [address] Blood specimen (specimen) 12/18/2017 9:40 AM CDT 12/18/2017 3:27 PM CDT Narrative [facility]TE - 12/18/2017 8:48 PM CDT Mary Haq MD LAB BLOOD ORDERABLES Final Re sult Performing Organization Address [facility] [employer] de Phone Number TORE[address]ANNA [id number] Department of Laboratories [place], [place] [id number] from Last 3 Months or Most Recently Relevant to Health Maintenance Insurance [facility] Advance Directives For more information, please contact: [phone] * Full Code (Latest Code Status on File) Date Activated Date Inactivated Comments 05/24/2021 12:40 PM 05/24/2021 5:45 PM * Full Code Date Activated Date Inactivated Comments 12/18/2017 11:02 PM 12/19/2017 1:48 PM * Full Code Date Activated Date Inactivated Comments 12/18/2017 11:02 PM 12/18/2017 11:02 PM * Full Code Date Activated Date Inactivated Comments 12/18/2017 11:02 PM 12/18/2017 11:02 PM Care Teams Priming Mixture Carrier Relationship Specialty Start Date End Date Remy Armendariz MD PCP - General Family Medicine 04/27/21
--- OUTSIDE RECORDS SUMMARY | 2025-03-06 06:07 | XMS_ITS | Referral Summary ---
Author Organization [facility] Address [address] [place] [address] Care Team Providers Care Wood Technologist Name Role Phone Remy Armendariz MD Primary Care Provider [phone] Encounters Date Type Department Care Team Description 02/28/2025 Results Follow-Up [place] [employer] [address] [place] [phone] Alyssa Agee RT NM MPI SPECT (Rest and/or Stress) Multiple Studies 02/22/2025 9:00 AM CDT Ancillary Procedure [place] [employer] [address] [place] [phone] Right bundle branch block (RBBB) with left anterior fascicular block (LAFB); Precordial pain; Dilated cardiomyopathy (HCC) 02/22/2025 8:00 AM CDT Ancillary Procedure [place] [employer] [address] [place] [phone] Dilated cardiomyopathy (HCC) 01/31/2025 10:15 AM CDT Office Visit [place] [facility] [address] [place] [phone] Andre López MD Right bundle branch block (RBBB) with left anterior fascicular block (LAFB) (Primary Dx); Precordial pain; Dilated cardiomyopathy (HCC); Pure hypercholesterolemia 12/13/2024 Orders Only [place] [facility] [employer] [address] [place] [phone] Andre López MD 12/13/2024 Telephone [place] [facility] [employer] [address] [place] [address] [address] [place] [address] Destiny King 12/06/2024 Orders Only [place] [facility] [address] [place] [address] [address] [place] [address] Provider, MD Sonali from Last 3 Months Allergies Active Allergy Reactions Criticality Noted Date [...] with meals 180 tablet 3 5 09/30/19 Active spironolactone (ALDACTONE) 25 mg tablet Take 1 tablet (25 mg total) by mouth daily 90 tablet 3 5 11/16/19 26 Active furosemide (LASIX) 40 mg tablet Take 1 tablet (40 mg total) by mouth daily 90 tablet 3 5 11/16/19 Active sacubitriL-valsar plunkett (ENTRESTO) 24-26 mg tabletIndications :chronic heart failure Take 1 tablet by mouth 2 (two) times a day 180 tablet 3 5 02/01/20 Active Hospital, Clinic, or Other Facility Administered [...] (05/23/2021): Added automatically from request for surgery [id number] Chest pain 04/27/2021 Assessment & Plan (01/31/2025 [...] weeks Assessment & Plan (09/30/2024 2:47 PM KELP CUTTER): Reassess LV function with echocardiogram. Increase carvedilol to 12.5 mg b.i.d. as her blood pressure still elevated and her resting pulse is about 90. Assessment & Plan (02/27/2024 9:22 AM CDT): Stable. Continue carvedilol and lisinopril. Assessment & Plan (08/08/2023 10:54 AM KELP CUTTER): Check echo. Increase carvedilol to 6.25 mg [...] 03/03/2020 Assessment & Plan (09/30/2024 2:47 PM KELP CUTTER): Increase carvedilol to 12.5 mg b.i.d. Assessment & Plan (02/27/2024 9:23 AM CDT): Controlled with carvedilol and lisinopril. No changes recommended Assessment & Plan (08/08/2023 10:54 AM KELP CUTTER): Controlled with lisinopril and carvedilol. Assessment & Plan (04/27/2021 9:33 AM CDT): Controlled with current medications. Right bundle branch block (R BBB) with left anterior fascicular block (LAFB) 03/03/2020 Assessment & Plan (09/30/2024 2:47 PM KELP CUTTER): ECG is stable. Continue to follow. Assessment [...] HYPERCHOLESTEROLEM Assessment & Plan (09/30/2024 2:47 PM KELP CUTTER): Continue atorvastatin. Assessment & Plan (02/27/2024 9:23 AM CDT): Continue atorvastatin. Assessment & Plan (08/08/2023 10:54 AM KELP CUTTER): Continue atorvastatin. Abnormal cardiovascular stress test Immunizations [...] on file Legal Sex Female 7:24 PM KELP CUTTER Gender Identity Not on file Sexual Orientation [...] Physician: Keegan Diallo MD Technologist: Alyssa Agee [facility] Adelita Alexis 59 y.o. female (: 1965) Ht: 64 in Wt: 150 lb Hours since last meal/Caffeine: 14+ Activity Level: Low REASON FOR PERFORMING TEST: CP/SOB/Cardiomyopathy Active Chest Pain: Absent Abnormal ECG: Absent Known CAD: Previous [place] RISK FACTORS: Hypertension: Yes Hypercholesterolemia: Yes Diabetes:Yes [...] was performed under the supervision of the quahogger, the results of which are above. The [...] test is significantly diminished with submaximal stress. Andre López MD IMG NM PROCEDURES Final Result * TRANSTHORACIC ECHO (TTE) COMPLETE W DOPPLER/CF WO CONTRAST (02/22/2025 8:42 AM CDT) EF Mod BP 42 % CONS SCIMAGE Anatomical Region Laterality Modality Ultrasound 02/22/2025 8:18 AM CDT Narrative 02/22/2025 8:59 AM CDT [place] [facility] [address] [place] [address] Echocardiogram Report Patient Name: ADELITA ALEXIS F [...] function. Electronically Signed By: Andre López MD, [facility] 02/22/2025 8:58:53 AM CDT Procedure Note Andre López MD - 02/22/2025 [place] [facility] [address] [facility]. [address] [place] [address] Echocardiogram Report Patient Name: ADELITA ALEXIS F [...] function. Electronically Signed By: Andre López MD, [facility] 02/22/2025 8:58:53 AM CDT Andre López MD CV ECHO PROCEDURES Final Resul t * BMP-manual (12/06/2024 8:50 AM CDT) us Historical Provider LAB BLOOD ORDERABLES Fatoumata l Result * (ABNORMAL) Lipid panel (02/21/2023 9:03 AM CDT) [facility] Cholesterol 324(H) 30 - 199 mg/dL ALLEN [...] 9:03 AM CDT 02/21/2023 12:57 PM CDT Andre López MD LAB BLOOD ORDERABLES Final Res ult Performing Organization Address City/[facility] Co de Phone Number ALLEN [id number] [place] [address] * eGFR (05/24/2021 6:58 AM CDT) eGFR [...] 6:58 AM CDT 05/24/2021 7:02 AM CDT Andre López MD LAB BLOOD ORDERABLES Final Res ult ALLEN [id number] Department [place] [address] * (ABNORMAL) Hemoglobin A1c (12/18/2017 9:40 AM CDT) Hgb A1C 11.5(H) 4.0 - 6.0 % ALLEN FORTE Comment: Interpretive Data Hemoglobin A1c ADA Interpretive Guidelines <7% Glycemia controlled >8% Hyperglycemia, additional action recommended Karl Immunochemical Method Current interpretive data was last revised on 2016 [facility] performed [facility] [place] [address] Estimated Average Glucose 283 mg/dL ALLEN FORTE Comment:Testing performed by : [facility] [address] [place] [address] Blood specimen (specimen) 12/18/2017 9:40 AM CDT 12/18/2017 3:27 PM CDT Narrative [facility]EN FORTE - 12/18/2017 8:48 PM CDT Mary Haq MD LAB BLOOD ORDERABLES Final Re sult [facility] [address] [place] [address] from Last 3 Months or Most Recently Relevant to Health Maintenance Insurance [facility] Advance Directives For more information, please contact: [phone] * Full Code (Latest Code Status on File) Date Activated Date Inactivated Comments 05/24/2021 12:40 PM 05/24/2021 5:45 PM * Full Code Date Activated Date Inactivated Comments 12/18/2017 11:02 PM 12/19/2017 1:48 PM * Full Code Date Activated Date Inactivated Comments 12/18/2017 11:02 PM 12/18/2017 11:02 PM * Full Code Date Activated Date Inactivated Comments 12/18/2017 11:02 PM 12/18/2017 11:02 PM Care Teams Wood Technologist Relationship Specialty Start Date End Date Remy Armendariz MD PCP - General Family Medicine 04/27/21
--- OUTSIDE RECORDS SUMMARY | 2025-03-06 06:07 | XMS_ITS | Clinical Summary ---
Author Organization [facility] Address [address] [place] [address] Care Team Providers Care Store Facility Technician Name Role Phone James Chen MD Primary Care Provider [phone] Allergies Active Allergy Reactions Criticality Noted Date [...] Problems Problem Noted Date Diagnosed Date Diabetes ([facility]) 11/26/2018 Hypertension 11/26/2018 Hyperlipidemia 11/26/2018 GERD (gastroesophageal [...] complication, without long-term current use of insulin ([facility]) 01/14/2017 Dyspnea on exertion 01/14/2017 Chest pain, [...] 12:59 PM CDT Height 162.6 cm (5' 4) 12/14/2018 12:59 PM CDT Body Mass Index 26.95 12/14/2018 12:59 PM CDT Plan of Treatment Health Maintenance Due Date Last Done Comments Colorectal Cancer Screening Colonoscopy (10 Years) 1966 Kidney Health Evaluation 1966 Hemoglobin A1C 1966 Annual Physical 1969 Diabetes: Retinopathy Eye Exam 1984 Hepatitis C 1984 DTaP, Tdap and Td Vaccines ( 1 - Tdap) 1985 Hepatitis B Vaccines (1 of 3 - 19+ 3-dose series) 1985 Pneumococcal Vaccine: 50+ Ye ars (1 of 2 - PCV) 1985 Mammogram Screening 2006 Zoster Vaccines (1 of 2) 2016 Lipid Panel 01/15/2018 01/15/2017 COVID-19 Vaccine (1 2023-2 5 season) 2024 Meningococcal B Vaccine Aged Out No l onger eligible based on patient's age to complete this topic Meningococcal Vaccine Aged Out No julián sylvie eligible based on patient's age to complete this topic RSV Immunizations Under 20 Months Aged Out No longer eligible based on patient's age to complete this topic Insurance MEDICAID Care Teams Store Facility Technician Relationship Specialty Start Date End Date James Chen MD [address] [place] [address] PCP - General FAMILY PRACTICE 11/19/18
--- OUTSIDE RECORDS SUMMARY | 2025-03-06 06:07 | XMS_ITS | Clinical Summary ---
Author Organization [facility] Address [address] [place] [address] Phone Care Team Providers Care Reducer Name Role Phone Remy Armendariz MD Primary Care Provider [phone] Rabia Lopez MD Unavailable Rosendo Johnson MD [...] 23 Active Insulin Pen Needle (TRUEplus Pen [place]) 32G X 4 MM Misc 1 Pen [...] 10:29 AM CDT Height 162.6 cm (5' 4) 04/17/2022 10:29 AM CDT Body Mass Index 26.78 04/17/2022 10:29 AM CDT Plan of Treatment Health Maintenance Due Date Last Done Comments Diabetes: Eye Exam 1966 Diabetes: Foot Exam 1966 Hepatitis C Virus (HCV) Screening 1966 Mammogram 1966 Hepatitis B Immunization (1 of 3 - 19+ 3-dose series) 1985 Pneumococcal Immunization (50+ years) (1 of 2 - PCV) 1985 Cologuard 2011 Immunochemical Fecal Occult Blood 2011 Zoster Immunization (1 of 2) 2016 Diabetes: Hemoglobin A1c 07/27/2022 022, 10/05/2021, 12/18/2017, Additional history exists Diabetes: Nephropathy Screening 01/08/2023 01/08/2022, 10/14/2021, 12/10/2018, Additional history exists SARS-COV-2 Immunization ( season) 2024 11/11/2020, 10/14/2020 Influenza Immunization (#1) 2025 06/05/2011 Colonoscopy 04/15/2027 04/15/2022, 02/08/2019 Colorectal Cancer Screening 04/15/2027 Respiratory Syncytial Virus (RSV) Immunization (Adult) (1 - 1-dose 75+ series) 2041 DTaP/Tdap/Td Immunization Discontinued 03/22/2023 TdaP Immunization Completed 03/22/2023 Human Papillomavirus (HPV) Immunization Aged Out No longer eligible based on patient's age to complete this topic Meningococcal Immunization (ACWY) Aged Out No longer [...] POCT GLYCOSYLATED HEMOGLOBIN (01/25/2022 11:21 AM CDT) HGB-A1C 7.7(A) 4 - 6 01/25/2022 11:2 1 AM CDT us Rabia Lopez MD POINT OF CARE TESTING (MANUAL) F inal Result * (ABNORMAL) CMP (Comprehensive Metabolic Panel) (01/08/2022 4:49 PM CDT) Pathologist [facility] SODIUM 134(L) 136 - 144 mmol/L 01/08/2022 5:25 PM CDT [facility] POTASSIUM 3.8 3.5 - 5.1 mmol/L 01/08/2022 5:25 PM CDT [facility] CHLORIDE 99(L) 100 - 110 mmol/L 01/08/2022 5:25 PM CDT [facility] CO2, VENOUS 23 22 - 32 mmol/L 01/08/2022 5:25 PM CDT [facility] ANION GAP 15.8 8.0 - 20.0 mmol/L 01/08/2022 5:25 PM CDT [facility] GLUCOSE 161(H) 70 - 99 mg/dL 01/08/2022 5:25 PM CDT [facility] BUN 13 6 - 20 mg/dL 01/08/2022 5:25 PM CDT [facility] CREATININE, BLOOD 0.68 0.60 - 1.10 mg/dL 01/08/2022 5:25 PM CDT [facility] BUN/CREATININE RATIO 19 12 - 20 ratio 01/08/2022 5:25 PM CDT [facility] TOTAL PROTEIN 6.9 6.0 - 8.3 g/dL 01/08/2022 5:25 PM CDT [facility] ALBUMIN 4.2 3.5 - 5.2 g/dL 01/08/2022 5:25 PM CDT [facility] Comment: The colormetric methods used for the determination of Albumin may lead to falsely elevated test results in patients suffering from renal failure or insufficiency due to interference with other proteins. A/G RATIO 1.6 1.0 - 2.0 01/08/2022 5:25 PM CDT [facility] CALCIUM 9.0 8.9 - 10.3 mg/dL 01/08/2022 5:25 PM CDT [facility] T BILI 0.5 <=1.2 mg/dL 01/08/2022 5:25 PM CDT [facility] SGOT (AST) 13 <=32 U/L 01/08/2022 5:25 PM CDT [facility] SGPT (ALT) 14 <=41 U/L 01/08/2022 5:25 PM CDT [facility] ALKALINE PHOSPHATASE 89 35 - 105 U/L 01/08/2022 5:25 PM CDT [facility] GFR, EST. NONAFRICAN >60 >=60 01/08/2022 5:25 PM CDT [facility] GFR, EST. >60 >=60 022 5:25 PM CDT [facility] Comment: Creatinine Clearance is the preferred criteria for selecting drug dose adjustments in renally impaired patients. The GFR is provided as additional pertinent clinical information. GFR is reported in mL/min/1.73 sq m. Blood Venipuncture / Unknown 01/08/2022 4:49 PM CDT 01/08/2022 4:58 PM CDT us Toni Holder MD CHEMISTRY ORDERABLES Final Resul t [facility] [address] [place] [address] from Last 3 Months or Most Recently Relevant to Health Maintenance Insurance MEDICAID [facility] Advance Directives * No CPR-Selective Treatment (Latest [...] measures to stabilize the patient. Care Teams Reducer Relationship Specialty Start Date End Date Remy Armendariz MD [address] [place] [id number] PCP - General Family Medicine 05/02/21 Rabia Lopez MD [address] [phone] Consulting Physician Endocrinology 01/17/22 Rosendo Johnson MD [address] [phone] Consulting Physician General Surgery 04/09/22
--- NOTE | 2025-03-06 06:08 | ECG_ITS ---
Test Date: 2025-03-06 06:14:51 Measurements Intervals [place] Rate: 74 P: 70 CA: 154 QRS: -78 QRSD: 173 T: 91 QT: 436 QTc: 485 Interpretive Statements SINUS RHYTHM RIGHT BUNDLE BRANCH BLOCK LEFT ANTERIOR FASCICULAR BLOCK LEFT VENTRICULAR HYPERTROPHY AND ST-T CHANGE CANNOT R/O SEPTAL INFARCT, AGE INDETERMINATE ABNORMAL ECG Compared to ECG 09/26/2024 18:46:56 NO SIGNIFICANT CHANGE Electronically Signed On 03-06-2025 08:11:30 CDT by Glen Stover D.O.
--- NOTE | 2025-03-06 06:17 | ED_ITS ---
HPI - Chest Pain General Chief Complaint: Chest Pain <Tomi Langford MD - Last Filed: 03/09/25 10:58> Stated Complaint: weakness, chest pain <Tomi Langford MD - Last Filed: 03/09/25 10:58> Time Seen by Provider: 03/06/25 06:07 <Tomi Langford MD - Last Filed: 03/09/25 10:58> Source: patient <Tomi Langford MD - Last Filed: 03/09/25 10:58> Mode of arrival: ambulatory <Tomi Langford MD - Last Filed: 03/09/25 10:58> History of Present Illness HPI narrative: 60-year-old female, smoker, diabetes mellitus, dyslipidemia with a history of coronary artery disease with a recent negative stress test 2 weeks ago, Negative cardiac catheterization more than 5 years ago, CHF on GDMT presents to the ED with -- left chest pain for the past 2 days. Pain is rated as 9/10 at its peak. Pain is sharp and made worse by deep breathing. No radiation of the pain. No shortness of breath. -- chronic diarrhea-- had colonoscopy in 2019 which revealed hyperplastic polyps without any evidence of dysplasi -- dizziness/lightheaa.dedness <Tomi Langford MD - Last Filed: 03/09/25 10:58> MD complaint: chest pain <Tomi Langford MD - Last Filed: 03/09/25 10:58> Pertinent past history: coronary artery disease <Tomi Langford MD - Last Filed: 03/09/25 10:58> Onset (ago): day(s) ( Two days) <Tomi Langford MD - Last Filed: 03/09/25 10:58> Timing of current episode: episodic <Tomi Langford MD - Last Filed: 03/09/25 10:58> Prior episodes: Yes <Tomi Langford MD - Last Filed: 03/09/25 10:58> Onset: during rest <Tomi Langford MD - Last Filed: 03/09/25 10:58> Pain location: left chest <Tomi Langford MD - Last Filed: 03/09/25 10:58> Severity: severe <Tomi Langford MD - Last Filed: 03/09/25 10:58> Pain scale (0-10): 9 <Tomi Langford MD - Last Filed: 03/09/25 10:58> Quality: sharp <Tomi Langford MD - Last Filed: 03/09/25 10:58> Relieving factors: nothing <Tomi Langford MD - Last Filed: 03/09/25 10:58> Exacerbating factors: inspiration <Tomi Langford MD - Last Filed: 03/09/25 10:58> Treatment prior to arrival: none <Tomi Langford MD - Last Filed: 03/09/25 10:58> Risk Factors Coronary artery disease risk factors: diabetes and smoking history <Tomi Langford MD - Last Filed: 03/09/25 10:58> Thoracic aortic dissection risk factors: longstanding hypertension <Tomi Langford MD - Last Filed: 03/09/25 10:58> Related Data On Oral Contraceptives: No <Tomi Langford MD - Last Filed: 03/09/25 10:58> Allergies/Adverse Reactions: Allergies Allergy/AdvReac Type Severity Reaction Status Date / Time tramadol Allergy Intermediate Rash Verified 03/06/25 06:31 <Tomi Langford MD - Last Filed: 03/09/25 10:58> Review of Systems 2 Review of Systems: All systems reviewed & are unremarkable except as noted in HPI and below <Tomi Langford MD - Last Filed: 03/09/25 10:58> Constitutional: Constitutional: Reports as per HPI, Reports no additional constitutional complaints and Reports weakness <Tomi Langford MD - Last Filed: 03/09/25 10:58> Eyes: Eyes: Reports as per HPI and Reports no additional eye complaints < Tomi Langford MD - Last Filed: 03/09/25 10:58> ENT: Reports system reviewed and no additional complaints, except as documented and Reports as per HPI <Tomi Langford MD - Last Filed: 03/09/25 10:58> Cardiovascular: Cardiovascular: Reports as per HPI, Reports no additional cardiovascular complaints and Reports chest pain <Tomi Langford MD - Last Filed: 03/09/25 10:58> Respiratory: Respiratory: Reports as per HPI, Reports no additional respiratory complaints and Reports cough <Tomi Langford MD - Last Filed: 03/09/25 10:58> Gastrointestinal: Gastrointestinal: Reports as per HPI and Reports no additional gastrointestinal complaints <Tomi Langford MD - Last Filed: 03/09/25 10:58> Genitourinary: Genitourinary: Reports no additional female genitourinary complaints and Reports as per HPI <Tomi Langford MD - Last Filed: 03/09/25 10:58> Musculoskeletal: Musculoskeletal: Reports no additional musculoskeletal complaints and Reports as per HPI <oTmi Langford MD - Last Filed: 03/09/25 10:58> Integumentary/Breasts: Skin/Breast: Reports system reviewed and no additional complaints, except as docu and Reports as per HPI <Tomi Langford MD - Last Filed: 03/09/25 10:58> Neurologic: Reports system reviewed and no additional complaints, except as documented and Reports as per HPI <Tomi Langford MD - Last Filed: 03/09/25 10:58> Psychiatric: Psychiatric: Reports no additional psychiatric complaints and Reports as per HPI <Tomi Langford MD - Last Filed: 03/09/25 10:58> Endocrine: Endocrine: Reports no additional endocrine complaints and Reports as per HPI <Tomi Langford MD - Last Filed: 03/09/25 10:58> Hematologic/Lymphatic: Hematologic/Lymphatic: Reports no additional hematologic/lymphatic complaints and Reports as per HPI <Tomi Langford MD - Last Filed: 03/09/25 10:58> Allergic/Immunologic: Allergic/Immunologic: Reports no additional allergic/immunologic complaints and Reports as per HPI <Tomi Langford MD - Last Filed: 03/09/25 10:58> PMFSH Past Medical History Medical History: Medical History Diabetes mellitus Hypertension Dyslipidemia CHF (congestive heart failure) <Tomi Langford MD - Last Filed: 03/09/25 10:58> Social History Social History: Social History Social History: smoker Smoking packs per day: 1 Smoking cigarettes per day: 20.0 Years smoked: 40 Smoking pack-years: 40.00 Smoking status: Current every day smoker Tobacco type: cigarettes <Tomi Langford MD - Last Filed: 03/09/25 10:58> Exam 2 Narrative: vitals are stable. Oxygen saturation of 96% on room air. <Tomi Langford MD - Last Filed: 03/09/25 10:58> Const: General: no acute distress <Tomi Langford MD - Last Filed: 03/09/25 10:58> Orientation/consciousness: patient oriented x3 <Tomi Langford MD - Last Filed: 03/09/25 10:58> Limitations: no limitations <Tomi Langford MD - Last Filed: 03/09/25 10:58> HENMT: Head: normal to inspection <Tomi Langford MD - Last Filed: 03/09/25 10:58> Ears: external ears normal <Tomi Langford MD - Last Filed: 03/09/25 10:58> Face/Nose/Sinus: Normal external nose present <Tomi Langford MD - Last Filed: 03/09/25 10:58> Face and sinus: normal facial exam <Tomi Langford MD - Last Filed: 03/09/25 10:58> Mouth: Yes Normal oral and palatal mucosa present <Tomi Langford MD - Last Filed: 03/09/25 10:58> Throat: posterior oropharynx normal <Tomi Langford MD - Last Filed: 03/09/25 10:58> Eyes: Conjunctivae: conjunctivae normal <Tomi Langford MD - Last Filed: 03/09/25 10:58> Pupils: Equal, round and reactive pupils present <Tomi Langford MD - Last Filed: 03/09/25 10:58> EOM: EOMs intact bilaterally <Tomi Langford MD - Last Filed: 03/09/25 10:58> Direct Ophthalmoscopy: no photophobia <Tomi Langford MD - Last Filed: 03/09/25 10:58> Neck: Neck: normal visual inspection, no lymphadenopathy and no meningeal signs <Tomi Langford MD - Last Filed: 03/09/25 10:58> Chest: Chest palpation & inspection: normal inspection of the chest < Tomi Langford MD - Last Filed: 03/09/25 10:58> Resp: Effort & Inspection: normal respiratory effort <Tomi Langford MD - Last Filed: 03/09/25 10:58> Auscultation: crackles ( Bibasilar rales 1/3 via the chest.), rhonchi and diminished lung sounds <Tomi Langford MD - Last Filed: 03/09/25 10:58> Cardio: Rate: regular rate <Tomi Langford MD - Last Filed: 03/09/25 10:58> Rhythm: regular rhythm <Tomi Langford MD - Last Filed: 03/09/25 10:58> GI: Auscultation: normal bowel sounds <Tomi Langford MD - Last Filed: 03/09/25 10:58> Other: No tenderness/rigidity / rebound. <Tomi Langford MD - Last Filed: 03/09/25 10:58> : General: Yes no CVA tenderness <Tomi Langford MD - Last Filed: 03/09/25 10:58> Back/Spine/Pelvis: Back: no CVA tenderness <Tomi Langford MD - Last Filed: 03/09/25 10:58> Skin: General skin exam: normal color <Tomi Langford MD - Last Filed: 03/09/25 10:58> Rashes: no rashes <Tomi Langford MD - Last Filed: 03/09/25 10:58> Wounds: no wounds <Tomi Langford MD - Last Filed: 03/09/25 10:58> Neuro: General: patient oriented x3, moves all extremities, no meningeal signs, no focal motor deficits and CN's II-XI intact bilaterally <Tomi Langford MD - Last Filed: 03/09/25 10:58> Speech: normal speech <Tomi Langford MD - Last Filed: 03/09/25 10:58> Extrem: General: normal to inspection and no clubbing, cyanosis or edema < Tomi Langford MD - Last Filed: 03/09/25 10:58> Psych: Mental Status: mental status grossly normal <Tomi Langford MD - Last Filed: 03/09/25 10:58> Affect: normal affect <Tomi Langford MD - Last Filed: 03/09/25 10:58> Attitude: cooperative <Tomi Langford MD - Last Filed: 03/09/25 10:58> Course Course Emergency Course: Left chest pain-- pain is clearly pleuritic which is made worse by deep breathing. Pain is sharp and stabbing. Nonproductive cough-- history around 45 year smoking history with bronchospasm suggestive chronic bronchitis. denied shortness of breath Dizziness-- blood pressure is stable. No focal neuro deficits. <Tomi Langford MD - Last Filed: 03/09/25 10:58> Vital Signs Vital signs: Vital Signs Temperature 35.7 C L 03/06/25 06:04 Pulse Rate 81 03/06/25 06:04 Respiratory Rate 16 03/06/25 06:04 Blood Pressure 129/58 L 03/06/25 06:04 Pulse Oximetry 96 03/06/25 06:04 Oxygen Delivery Room Air 03/06/25 06:04 Temperature 36.6 C 03/06/25 08:40 Pulse Rate 79 03/06/25 08:40 Respiratory Rate 18 03/06/25 08:40 Blood Pressure 129/58 L 03/06/25 08:40 Pulse Oximetry 96 03/06/25 08:40 Oxygen Delivery Room Air 03/06/25 08:40 <Tomi Langford MD - Last Filed: 03/09/25 10:58> Vital Signs Temperature 35.7 C L 03/06/25 06:04 Pulse Rate 81 03/06/25 06:04 Respiratory Rate 16 03/06/25 06:04 Blood Pressure 129/58 L 03/06/25 06:04 Pulse Oximetry 96 03/06/25 06:04 Oxygen Delivery Room Air 03/06/25 06:04 Temperature 36.6 C 03/06/25 08:40 Pulse Rate 79 03/06/25 08:40 Respiratory Rate 18 03/06/25 08:40 Blood Pressure 129/58 L 03/06/25 08:40 Pulse Oximetry 96 03/06/25 08:40 Oxygen Delivery Room Air 03/06/25 08:40 <Jorge Naranjo MD - Last Filed: 03/06/25 08:37> MDM - Chest Pain MDM Narrative Medical decision making narrative: Patient had essentially a complete negative workup for chest pain at this time. Patient had recent cardiology evaluation with testing that was negative. On examination she has severe tenderness in the left costochondral margins and reproducible chest pain. Will treat with Medrol Dosepak trial and see if that helps at this time. <Jorge Naranjo MD - Last Filed: 03/06/25 08:37> Lab Data Attestation: I reviewed the patient's lab results. <Jorge Naranjo MD - Last Filed: 03/06/25 08:37> Result diagrams: 03/06/25 06:50 03/06/25 06:50 <Tomi Langford MD - Last Filed: 03/09/25 10:58> Labs: Lab Results 03/06/25 03/06/25 Range/Units 06:50 07:33 WBC 6.6 (4.8-10.8) K/mm3 RBC 3.88 L (4.20-5.40) M/mm3 Hgb 12.4 (12.0-15.0) g/dL Hct 36.6 (35.0-49.0) % MCV 94.3 (78.0-102.0) fL MCH 32.0 H (27.0-31.0) pg MCHC 33.9 (32-36) g/dL RDW 13.0 (11.6-14.4) % Plt Count 163 (150-420) K/mm3 MPV 10.1 (9.2-11.8) fl Immature Gran % (Auto) 0.5 H (0.0-0.0) % Neut % (Auto) 63.7 (50.0-70.0) % Lymph % (Auto) 24.6 (18.0-42.0) % [place] % (Auto) 8.9 (2.0-11.0) % Eos % (Auto) 1.7 (1.0-6.0) % Baso % (Auto) 0.6 (0.0-1.0) % Lymph # (Auto) 1.63 (1.10-4.50) K/mm3 [place] # (Auto) 0.59 (0.10-0.90) K/mm3 Eos # (Auto) 0.11 (0.02-0.50) K/mm3 Baso # (Auto) 0.04 (0.00-0.10) K/mm3 Abs Immat Gran (auto) 0.03 H (0.00-0.00) K/mm3 Absolute Neuts (auto) 4.22 (1.70-7.20) K/mm3 Absolute Nucleated RBC 0.00 (0.00-0.00) K/mm3 Nucleated RBC % 0.0 (0-0.0) % PT 10.9 (9.50-12.1) Seconds INR 1.0 D-Dimer 0.19 (0.19-0.50) mg/L Sodium 142 (137-145) mmol/L Potassium 3.7 (3.4-5.0) mmol/L Chloride 107 (98-107) mmol/L Carbon Dioxide 28 (22-30) mmol/L Anion Gap 7 (4-12) mmol/L BUN 23 H (7-17) mg/dL Creatinine 0.96 (0.7-1.0) mg/dL Estim Creat Clear Calc 48 ml/min Estimated GFR 59 (59 - ) Glucose 165 H (65-110) mg/dL Calculated Osmolality 301 H (285-295) mOsm/kg Lactic Acid 1.0 (0.4-2.0) mmol/L Calcium 8.8 (8.4-10.2) mg/dL Magnesium 1.8 (1.6-2.3) mg/dL Total Bilirubin 0.3 (0.2-1.3) mg/dL AST 23 (14-36) U/L ALT 23 (6-35) U/L Alkaline Phosphatase 144 H (38-126) U/L Troponin I < 0.012 (0.000-0.034) ng/mL NT-Pro-B Natriuret Pep 300 H (19.9-100) pg/mL Total Protein 6.2 L (6.3-8.2) g/dL Albumin 3.7 (3.5-5.1) g/dL <Tomi Langford MD - Last Filed: 03/09/25 10:58> Lab Results 03/06/25 03/06/25 Range/Units 06:50 07:33 WBC 6.6 (4.8-10.8) K/mm3 RBC 3.88 L (4.20-5.40) M/mm3 Hgb 12.4 (12.0-15.0) g/dL Hct 36.6 (35.0-49.0) % MCV 94.3 (78.0-102.0) fL MCH 32.0 H (27.0-31.0) pg MCHC 33.9 (32-36) g/dL RDW 13.0 (11.6-14.4) % Plt Count 163 (150-420) K/mm3 MPV 10.1 (9.2-11.8) fl Immature Gran % (Auto) 0.5 H (0.0-0.0) % Neut % (Auto) 63.7 (50.0-70.0) % Lymph % (Auto) 24.6 (18.0-42.0) % [place] % (Auto) 8.9 (2.0-11.0) % Eos % (Auto) 1.7 (1.0-6.0) % Baso % (Auto) 0.6 (0.0-1.0) % Lymph # (Auto) 1.63 (1.10-4.50) K/mm3 [place] # (Auto) 0.59 (0.10-0.90) K/mm3 Eos # (Auto) 0.11 (0.02-0.50) K/mm3 Baso # (Auto) 0.04 (0.00-0.10) K/mm3 Abs Immat Gran (auto) 0.03 H (0.00-0.00) K/mm3 Absolute Neuts (auto) 4.22 (1.70-7.20) K/mm3 Absolute Nucleated RBC 0.00 (0.00-0.00) K/mm3 Nucleated RBC % 0.0 (0-0.0) % PT 10.9 (9.50-12.1) Seconds INR 1.0 D-Dimer 0.19 (0.19-0.50) mg/L Sodium 142 (137-145) mmol/L Potassium 3.7 (3.4-5.0) mmol/L Chloride 107 (98-107) mmol/L Carbon Dioxide 28 (22-30) mmol/L Anion Gap 7 (4-12) mmol/L BUN 23 H (7-17) mg/dL Creatinine 0.96 (0.7-1.0) mg/dL Estim Creat Clear Calc 48 ml/min Estimated GFR 59 (59 - ) Glucose 165 H (65-110) mg/dL Calculated Osmolality 301 H (285-295) mOsm/kg Lactic Acid 1.0 (0.4-2.0) mmol/L Calcium 8.8 (8.4-10.2) mg/dL Magnesium 1.8 (1.6-2.3) mg/dL Total Bilirubin 0.3 (0.2-1.3) mg/dL AST 23 (14-36) U/L ALT 23 (6-35) U/L Alkaline Phosphatase 144 H (38-126) U/L Troponin I < 0.012 (0.000-0.034) ng/mL NT-Pro-B Natriuret Pep 300 H (19.9-100) pg/mL Total Protein 6.2 L (6.3-8.2) g/dL Albumin 3.7 (3.5-5.1) g/dL <Jorge Naranjo MD - Last Filed: 03/06/25 08:37> Imaging Data Attestation: I personally reviewed and interpreted this imaging study as follows: <Jorge Naranjo MD - Last Filed: 03/06/25 08:37> Radiologist's impression: Chest x-ray is negative for acute process <Jorge Naranjo MD - Last Filed: 03/06/25 08:37> ECG Data EKG #1: ECG completion date: 03/06/25 <Tomi Langford MD - Last Filed: 03/09/25 10:58> ECG completion time: 06:14 <Tomi Langford MD - Last Filed: 03/09/25 10:58> Interpretation: normal sinus rhythm. 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 LVH. No ST elevation. This EKG is similar to a previous EKG done on 09/26/2024. <Tomi Langford MD - Last Filed: 03/09/25 10:58> Discharge Plan Discharge Clinical Impression: Acute costochondritis, Atypical chest pain <Tomi Langford MD - Last Filed: 03/09/25 10:58> Patient Disposition: Home <Tomi Lnagford MD - Last Filed: 03/09/25 10:58> Condition: Stable <Tomi Langford MD - Last Filed: 03/09/25 10:58> Instructions: Costochondritis (ED) <Tomi Langford MD - Last Filed: 03/09/25 10:58> Patient Language: Kyrgyz <Tomi Langford MD - Last Filed: 03/09/25 10:58> Prescriptions: New methylprednisolone [Medrol (Josr)] 4 mg tablets,dose pack See Rx Instructions .ROUTE .COMPLEX Qty: 21 0RF Rx Instructions: orally per package directions No Action furosemide [Lasix] 20 mg tablet 20 mg PO DAILY Qty: 30 0RF potassium chloride 10 mEq capsule, extended release 10 meq PO DAILY Qty: 30 0RF metformin 500 mg tablet 500 mg PO BID Qty: 60 0RF <Tomi Langford MD - Last Filed: 03/09/25 10:58> Follow-up/Referrals: Klaa,MD Remy [Primary Care Provider] - <Tomi Langford MD - Last Filed: 03/09/25 10:58> Time of Disposition: 08:34 <Tomi Langford MD - Last Filed: 03/09/25 10:58> 08:34 <Jorge Naranjo MD - Last Filed: 03/06/25 08:37>
--- OUTSIDE RECORDS SUMMARY | 2025-03-06 06:47 | XMS_ITS | Encounter Summary ---
Author Organization [facility] Address [address] [place] [address] Phone Care Team Providers Care Piper Installer Name Role Phone Remy Armendariz MD Primary Care Provider Rabia Lopez MD Unavailable Rosendo Johnson MD Unavailable [phone] Reason for Visit * Reason Comments Medication Refill Encounter Details Date Type Department Care Team (Late st Contact Info) Description 02/07/2023 Refill [facility] - Endocrinology - [place] [address] [place] [address] Rabia Lopez MD [address] [phone] Medication Refill Social History Tobacco [...] Misc [Pharmacy Med Name: BD PEN NEEDLE/BRIANDA [id number] MIS] 100 Each 0 Sig: USE 1 ONCE DAILY Next appt: Message sent to schedule follow up. documented in this encounter Plan of Treatment Not on file documented as of this encounter Visit Diagnoses Not on filedocumented in this encounter Care Teams Piper Installer Relationship Specialty Start Date End Date Remy Armendariz MD [address] [place] [id number] PCP - General Family Medicine 05/02/21 Rabia Lopez MD [address] [id number] Consulting Physician Endocrinology 01/17/22 Rosendo Johnson MD [address] [address] Consulting Physician General Surgery 04/09/22 documented as of this encounter
--- OUTSIDE RECORDS SUMMARY | 2025-03-06 06:48 | XMS_ITS | Clinical Summary ---
Author Organization [facility] Address [address] [place] [address] Phone Care Team Providers Care Sales Support Representative Name Role Phone Remy Armendariz MD Primary Care Provider [phone] Rabia Lopez MD Unavailable Rosendo Johnson MD Unavailable [phone] Allergies Active Allergy Reactions Criticality Noted Date [...] 23 Active Insulin Pen Needle (TRUEplus Pen Imnaha) 32G X 4 MM Misc 1 Pen [...] Metabolic Panel) (01/08/2022 4:49 PM CDT) Pathologist [facility] SODIUM 134(L) 136 - 144 mmol/L 01/08/2022 5:25 PM CDT [facility] POTASSIUM 3.8 3.5 - 5.1 mmol/L 01/08/2022 5:25 PM CDT [facility] CHLORIDE 99(L) 100 - 110 mmol/L 01/08/2022 5:25 PM CDT [facility] CO2, VENOUS 23 22 - 32 mmol/L 01/08/2022 5:25 PM CDT [facility] ANION GAP 15.8 8.0 - 20.0 mmol/L 01/08/2022 5:25 PM CDT [facility] GLUCOSE 161(H) 70 - 99 mg/dL 01/08/2022 5:25 PM CDT [facility] BUN 13 6 - 20 mg/dL 01/08/2022 5:25 PM CDT [facility] CREATININE, BLOOD 0.68 0.60 - 1.10 mg/dL 01/08/2022 5:25 PM CDT [facility] BUN/CREATININE RATIO 19 12 - 20 ratio 01/08/2022 5:25 PM CDT [facility] TOTAL PROTEIN 6.9 6.0 - 8.3 g/dL 01/08/2022 5:25 PM CDT [facility] ALBUMIN 4.2 3.5 - 5.2 g/dL 01/08/2022 5:25 PM CDT [facility] Comment: The colormetric methods used for the determination of Albumin may lead to falsely elevated test results in patients suffering from renal failure or insufficiency due to interference with other proteins. A/G RATIO 1.6 1.0 - 2.0 01/08/2022 5:25 PM CDT [facility] CALCIUM 9.0 8.9 - 10.3 mg/dL 01/08/2022 5:25 PM CDT [facility] T BILI 0.5 <=1.2 mg/dL 01/08/2022 5:25 PM CDT [facility] SGOT (AST) 13 <=32 U/L 01/08/2022 5:25 PM CDT [facility] SGPT (ALT) 14 <=41 U/L 01/08/2022 5:25 PM CDT [facility] ALKALINE PHOSPHATASE 89 35 - 105 U/L 01/08/2022 5:25 PM CDT [facility] GFR, EST. NONAFRICAN >60 >=60 01/08/2022 5:25 PM CDT [facility] GFR, EST. >60 >=60 022 5:25 PM CDT [facility] Comment: Creatinine Clearance is the preferred criteria for selecting drug dose adjustments in renally impaired patients. The GFR is provided as additional pertinent clinical information. GFR is reported in mL/min/1.73 sq m. Blood Venipuncture / Unknown 01/08/2022 4:49 PM CDT 01/08/2022 4:58 PM CDT us Toni Holder MD CHEMISTRY ORDERABLES Final Resul t [facility] [address] [place] [address] from Last 3 Months or Most Recently Relevant to Health Maintenance Insurance MEDICAID [facility] Advance Directives * No CPR-Selective Treatment (Latest [...] measures to stabilize the patient. Care Teams Sales Support Representative Relationship Specialty Start Date End Date Remy Armendariz MD [address] [place] [id number] PCP - General Family Medicine 05/02/21 Rabia Lopez MD [address] [phone] Consulting Physician Endocrinology 01/17/22 Rosendo Johnson MD [address] [phone] Consulting Physician General Surgery 04/09/22
--- OUTSIDE RECORDS SUMMARY | 2025-03-06 06:48 | XMS_ITS | Clinical Summary ---
Author Organization [facility] Address [address] [place] [address] Care Team Providers Care Net Developer Architect Name Role Phone James Chen MD Primary Care Provider [phone] Allergies Active Allergy Reactions Criticality Noted Date [...] Problems Problem Noted Date Diagnosed Date Diabetes ([facility]) 11/26/2018 Hypertension 11/26/2018 Hyperlipidemia 11/26/2018 GERD (gastroesophageal [...] complication, without long-term current use of insulin ([facility]) 01/14/2017 Dyspnea on exertion 01/14/2017 Chest pain, [...] complete this topic Insurance MEDICAID Care Teams Net Developer Architect Relationship Specialty Start Date End Date James Chen MD [address] [place] [address] PCP - General FAMILY PRACTICE 11/19/18
--- OUTSIDE RECORDS SUMMARY | 2025-03-06 06:48 | XMS_ITS | Referral Summary ---
Author Organization [facility] Address [address] [place] [address] Care Team Providers Care Senior Talent Management Consultant Name Role Phone Remy Armendariz MD Primary Care Provider [phone] Encounters Date Type Department Care Team Description 02/28/2025 Results Follow-Up [place] [facility] [address] [place] [phone] Alyssa Agee RT [place] MPI SPECT (Rest and/or Stress) Multiple Studies 02/22/2025 9:00 AM CDT Ancillary Procedure [place] [facility] [address] [place] [phone] Right bundle branch block (RBBB) with left anterior fascicular block (LAFB); Precordial pain; Dilated cardiomyopathy (HCC) 02/22/2025 8:00 AM CDT Ancillary Procedure [place] [facility] [address] [place] [phone] Dilated cardiomyopathy (HCC) 01/31/2025 10:15 AM CDT Office Visit [place] [facility] [address] [place] [phone] Andre López MD Right bundle branch block (RBBB) with left anterior fascicular block (LAFB) (Primary Dx); Precordial pain; Dilated cardiomyopathy (HCC); Pure hypercholesterolemia 12/13/2024 Orders Only [place] [facility] [address] [place] [phone] Andre López MD 12/13/2024 Telephone [place] [facility] [address] [place] [address] [address] [place] [address] Destiny King 12/06/2024 Orders Only [place] [facility] [address] [place] [address] [address] [place] [address] Provider, MD Sonali from Last [...] (05/23/2021): Added automatically from request for surgery [id number] Chest pain 04/27/2021 Assessment & Plan (01/31/2025 [...] weeks Assessment & Plan (09/30/2024 2:47 PM POWER OPERATOR): Reassess LV function with echocardiogram. Increase carvedilol to 12.5 mg b.i.d. as her blood pressure still elevated and her resting pulse is about 90. Assessment & Plan (02/27/2024 9:22 AM CDT): Stable. Continue carvedilol and lisinopril. Assessment & Plan (08/08/2023 10:54 AM POWER OPERATOR): Check echo. Increase carvedilol to 6.25 mg [...] 03/03/2020 Assessment & Plan (09/30/2024 2:47 PM POWER OPERATOR): Increase carvedilol to 12.5 mg b.i.d. Assessment & Plan (02/27/2024 9:23 AM CDT): Controlled with carvedilol and lisinopril. No changes recommended Assessment & Plan (08/08/2023 10:54 AM POWER OPERATOR): Controlled with lisinopril and carvedilol. Assessment & Plan (04/27/2021 9:33 AM CDT): Controlled with current medications. Right bundle branch block (R BBB) with left anterior fascicular block (LAFB) 03/03/2020 Assessment & Plan (09/30/2024 2:47 PM POWER OPERATOR): ECG is stable. Continue to follow. Assessment [...] HYPERCHOLESTEROLEM Assessment & Plan (09/30/2024 2:47 PM POWER OPERATOR): Continue atorvastatin. Assessment & Plan (02/27/2024 9:23 AM CDT): Continue atorvastatin. Assessment & Plan (08/08/2023 10:54 AM POWER OPERATOR): Continue atorvastatin. Abnormal cardiovascular stress test Immunizations [...] on file Legal Sex Female 7:24 PM POWER OPERATOR Gender Identity Not on file Sexual Orientation [...] Physician: Keegan Diallo MD Technologist: Alyssa Agee [facility] Adelita Alexis 59 y.o. female (: 1965) Ht: 64 in Wt: 150 lb Hours since last meal/Caffeine: 14+ Activity Level: Low REASON FOR PERFORMING TEST: CP/SOB/Cardiomyopathy Active Chest Pain: Absent Abnormal ECG: Absent Known CAD: Previous NE RISK FACTORS: Hypertension: Yes Hypercholesterolemia: Yes Diabetes:Yes [...] was performed under the supervision of the hardboard panel printer, the results of which are above. The [...] AM CDT Narrative 02/22/2025 8:59 AM CDT [place] [facility] [address] [place] [address] Echocardiogram Report Patient Name: ADELITA ALEXIS F [...] function. Electronically Signed By: Andre López MD, [facility] 02/22/2025 8:58:53 AM CDT Procedure Note Andre López MD - 02/22/2025 [place] [facility] [address] [facility] [address] [place] [address] Echocardiogram Report Patient Name: ADELITA ALEXIS F [...] function. Electronically Signed By: Andre López MD, [facility] 02/22/2025 8:58:53 AM CDT Andre López MD CV ECHO PROCEDURES Final Resul t * BMP-manual (12/06/2024 8:50 AM CDT) us Historical Provider LAB BLOOD ORDERABLES Fatoumata l Result * (ABNORMAL) Lipid panel (02/21/2023 9:03 AM CDT) [facility] Cholesterol 324(H) 30 - 199 mg/dL ALLEN [...] ORDERABLES Final Res ult Performing Organization Address City/[facility] Co de Phone Number ALLEN [address] [place] [address] * eGFR (05/24/2021 6:58 AM CDT) eGFR [...] LAB BLOOD ORDERABLES Final Res ult ALLEN [address] Department [place] [address] * (ABNORMAL) Hemoglobin A1c (12/18/2017 9:40 AM CDT) Hgb A1C 11.5(H) 4.0 - 6.0 % ALLEN FORTE Comment: Interpretive Data Hemoglobin A1c ADA Interpretive Guidelines <7% Glycemia controlled >8% Hyperglycemia, additional action recommended Karl Immunochemical Method Current interpretive data was last revised on 2016 [facility] [place] [address] Estimated Average Glucose 283 mg/dL ALLEN FORTE Comment:[facility] [place] [address] Blood specimen (specimen) 12/18/2017 9:40 AM CDT 12/18/2017 3:27 PM CDT Narrative ALLEN FORTE - 12/18/2017 8:48 PM CDT Mary Haq MD LAB BLOOD ORDERABLES Final Re sult [facility] [address] Department [place] [address] from Last 3 Months or Most Recently Relevant to Health Maintenance Insurance [facility] Advance Directives For more information, please contact: [phone] * Full Code (Latest Code Status on File) Date Activated Date Inactivated Comments 05/24/2021 12:40 PM 05/24/2021 5:45 PM * Full Code Date Activated Date Inactivated Comments 12/18/2017 11:02 PM 12/19/2017 1:48 PM * Full Code Date Activated Date Inactivated Comments 12/18/2017 11:02 PM 12/18/2017 11:02 PM * Full Code Date Activated Date Inactivated Comments 12/18/2017 11:02 PM 12/18/2017 11:02 PM Care Teams Senior Talent Management Consultant Relationship Specialty Start Date End Date Remy Armendariz MD PCP - General Family Medicine 04/27/21
--- OUTSIDE RECORDS SUMMARY | 2025-03-06 06:48 | XMS_ITS | Clinical Summary ---
Author Organization [facility] Address [address] [facility] [place] [address] Care Team Providers Care Barge Engineer Name Role Phone James Chen MD Primary Care Provider [phone] Source Comments [facility],non-owned Affiliates and Associated Physician Practices is amultiple site organization consisting of ambulatory clinics and hospital sitesin [place], [place], [place] and [place]. This disclosure is being madepursuant to the Care Everywhere program and may not contain all information available regarding this patient. Last updated 18.[facility] Allergies Active Allergy Reactions Criticality Noted Date [...] on file Legal Sex Female 12:00 PM PAGINATOR Gender Identity Not on file Sexual Orientation Not on file Last Filed Vital Signs Vital Sign Reading Time Taken Comments Blood Pressure 138/62 09/23/2020 10:09 AM PAGINATOR Pulse 80 09/23/2020 10:09 AM PAGINATOR Temperature 36.7 C (98 F) 09/23/2020 10:09 AM PAGINATOR Respiratory Rate 16 09/23/2020 10:0 9 AM PAGINATOR Oxygen Saturation 98% 09/23/2020 10: 09 AM PAGINATOR Inhaled Oxygen Concentration - - Weight 73.8 kg (162 lb 12.8 oz) 021 10:09 AM PAGINATOR Height 162.6 cm (5' 4) 09/23/2020 10:0 9 AM PAGINATOR Body Mass Index 27.94 09/23/2020 10:09 AM PAGINATOR Plan of Treatment Health Maintenance Due Date [...] patient's age to complete this topic Insurance [facility] Care Teams Barge Engineer Relationship Specialty Start Date End Date James Chen MD [address] [place] [id number] PCP - General Family Medicine 04/14/19
--- OUTSIDE RECORDS SUMMARY | 2025-03-06 06:48 | XMS_ITS | Clinical Summary ---
Author Organization [facility] Address [address] [place] [phone] Care Team Providers Care Oven Attendant Name Role Phone Remy Armendariz MD Primary Care Provider Allergies Active Allergy Reactions Criticality Noted Date [...] (05/23/2021): Added automatically from request for surgery [id number] Chest pain 04/27/2021 Assessment & Plan (01/31/2025 [...] weeks Assessment & Plan (09/30/2024 2:47 PM DEICER KIT ASSEMBLER): Reassess LV function with echocardiogram. Increase carvedilol to 12.5 mg b.i.d. as her blood pressure still elevated and her resting pulse is about 90. Assessment & Plan (02/27/2024 9:22 AM CDT): Stable. Continue carvedilol and lisinopril. Assessment & Plan (08/08/2023 10:54 AM DEICER KIT ASSEMBLER): Check echo. Increase carvedilol to 6.25 mg [...] 03/03/2020 Assessment & Plan (09/30/2024 2:47 PM DEICER KIT ASSEMBLER): Increase carvedilol to 12.5 mg b.i.d. Assessment & Plan (02/27/2024 9:23 AM CDT): Controlled with carvedilol and lisinopril. No changes recommended Assessment & Plan (08/08/2023 10:54 AM DEICER KIT ASSEMBLER): Controlled with lisinopril and carvedilol. Assessment & Plan (04/27/2021 9:33 AM CDT): Controlled with current medications. Right bundle branch block (R BBB) with left anterior fascicular block (LAFB) 03/03/2020 Assessment & Plan (09/30/2024 2:47 PM DEICER KIT ASSEMBLER): ECG is stable. Continue to follow. Assessment [...] HYPERCHOLESTEROLEM Assessment & Plan (09/30/2024 2:47 PM DEICER KIT ASSEMBLER): Continue atorvastatin. Assessment & Plan (02/27/2024 9:23 AM CDT): Continue atorvastatin. Assessment & Plan (08/08/2023 10:54 AM DEICER KIT ASSEMBLER): Continue atorvastatin. Abnormal cardiovascular stress test Encounters Date Type Department Care Team Description 02/28/2025 Results Follow-Up [place] Dough Machine Operator [address] [place] [phone] Alyssa Agee RT NM MPI SPECT (Rest and/or Stress) Multiple Studies 02/22/2025 9:00 AM CDT Ancillary Procedure [place] [facility] [address] [place] [phone] Right bundle branch block (RBBB) with left anterior fascicular block (LAFB); Precordial pain; Dilated cardiomyopathy (HCC) 02/22/2025 8:00 AM CDT Ancillary Procedure [place] [facility] [address] [place] [phone] Dilated cardiomyopathy (HCC) 01/31/2025 10:15 AM CDT Office Visit [place] [facility] [address] [place] [phone] Andre López MD Right bundle branch block (RBBB) with left anterior fascicular block (LAFB) (Primary Dx); Precordial pain; Dilated cardiomyopathy (HCC); Pure hypercholesterolemia 12/13/2024 Orders Only [place] [facility] Operator [address] [place] [address] [address] [place] [address] Andre López MD 12/13/2024 Telephone [place] [facility] [id number] [place] [address] [address] [place] [address] Destiny King 12/06/2024 Orders Only [place] [facility] [address] [place] [address] [address] [place] [phone] Provider, MD Sonali from Last 3 Months [...] Hypertension Hyperlipidemia Fatty liver Arrhythmia pt unsure IA (myocardial infarction) (HCC) GERD (gastroesophageal reflux disease) [...] on file Legal Sex Female 7:24 PM DEICER KIT ASSEMBLER Gender Identity Not on file Sexual Orientation [...] Physician: Keegan Diallo MD Technologist: Alyssa Agee [facility] Adelita Alexis 59 y.o. female (: 1965) Ht: 64 in Wt: 150 lb Hours since last meal/Caffeine: 14+ Activity Level: Low REASON FOR PERFORMING TEST: CP/SOB/Cardiomyopathy Active Chest Pain: Absent Abnormal ECG: Absent Known CAD: Previous [place] RISK FACTORS: Hypertension: Yes Hypercholesterolemia: Yes Diabetes:Yes [...] was performed under the supervision of the hot iron worker, the results of which are above. The [...] AM CDT Narrative 02/22/2025 8:59 AM CDT [place] [facility] Operator [address] [place] [address] Echocardiogram Report Patient Name: ADELITA ALEXIS F [...] function. Electronically Signed By: Andre López MD, [facility] 02/22/2025 8:58:53 AM CDT Procedure Note Andre López MD - 02/22/2025 [place] [facility] Operator [address] [place] [address] Echocardiogram Report Patient Name: ADELITA ALEXIS F [...] function. Electronically Signed By: Andre López MD, [facility] 02/22/2025 8:58:53 AM CDT Andre López [...] on 2018. Non-HDL Cholesterol 289 mg/dL ALLEN FORET Comment: Interpretive Data Ages < or = [...] LAB BLOOD ORDERABLES Final Res ult [facility]EN [address] [place] [address] * eGFR (05/24/2021 6:58 AM CDT) eGFR [...] LAB BLOOD ORDERABLES Final Res ult TOREY[facility]LEY [address] Department of Laboratories [place], [place] [id number] * (ABNORMAL) Hemoglobin A1c (12/18/2017 9:40 AM CDT) Hgb A1C 11.5(H) 4.0 - 6.0 % ALLEN FORTE Comment: Interpretive Data Hemoglobin A1c ADA Interpretive Guidelines <7% Glycemia controlled >8% Hyperglycemia, additional action recommended Karl Immunochemical Method Current interpretive data was last revised on 2016 [facility] [address] [place] [address] Estimated Average Glucose 283 mg/dL [facility] FORTE Comment:[facility] : [facility] [address] [place] [address] Blood specimen (specimen) 12/18/2017 9:40 AM CDT 12/18/2017 3:27 PM CDT Narrative ALLEN FORTE - 12/18/2017 8:48 PM CDT Mary Haq MD LAB BLOOD ORDERABLES Final Re sult Performing Organization Address [facility] Co de Phone Number TOREYASHLEY REANNA [address] Department of Laboratories [place], [place] [id number] from Last 3 Months or Most Recently Relevant to Health Maintenance Insurance [facility] Advance Directives For more information, please contact: [phone] * Full Code (Latest Code Status on File) Date Activated Date Inactivated Comments 05/24/2021 12:40 PM 05/24/2021 5:45 PM * Full Code Date Activated Date Inactivated Comments 12/18/2017 11:02 PM 12/19/2017 1:48 PM * Full Code Date Activated Date Inactivated Comments 12/18/2017 11:02 PM 12/18/2017 11:02 PM * Full Code Date Activated Date Inactivated Comments 12/18/2017 11:02 PM 12/18/2017 11:02 PM Care Teams Oven Attendant Relationship Specialty Start Date End Date Remy Armendariz MD PCP - General Family Medicine 04/27/21
[2025-03-06 06:58] LABS: Hematocrit 36.6 % (35.0-49.0); Hemoglobin 12.4 g/dL (12.0-15.0); Immature Granulocyte Percent A 0.5 % (0.0-0.0); Lymphocytes Absolute Auto 1.63 K/mm3 (1.10-4.50); Mean Corpuscular HGB Conc 33.9 g/dL (32-36); Mean Corpuscular Hemoglobin 32.0 pg (27.0-31.0); Mean Corpuscular Volume 94.3 fL (78.0-102.0); Nucleated Red Blood Cells Absolute Auto 0.00 K/mm3 (0.00-0.00); Nucleated Red Blood Cells Perc 0.0 % (0-0.0); Platelet Count Result 163 K/mm3 (150-420); Red Blood Count 3.88 M/mm3 (4.20-5.40); White Blood Count 6.6 K/mm3 (4.8-10.8)
[2025-03-06 07:07] LABS: Alanine Aminotransferase 23 U/L (6-35); Albumin Level 3.7 g/dL (3.5-5.1); Alkaline Phosphatase 144 U/L (38-126); Anion Gap 7 mmol/L (4-12); Aspartate Amino Transferase 23 U/L (14-36); Bilirubin,Total 0.3 mg/dL (0.2-1.3); Blood Urea Nitrogen 23 mg/dL (7-17); Calcium 8.8 mg/dL (8.4-10.2); Carbon Dioxide 28 mmol/L (22-30); Chloride 107 mmol/L (98-107); Estimated CRCL calculation 48 ml/min; Estimated Glomerular Filt Rate 59; Glucose 165 mg/dL (65-110); Osmolality Calculated 301 mOsm/kg (285-295); Potassium 3.7 mmol/L (3.4-5.0); Sodium 142 mmol/L (137-145); Total Protein 6.2 g/dL (6.3-8.2)
[2025-03-06 07:08] LABS: INR 1.0; Magnesium 1.8 mg/dL (1.6-2.3); Prothrombin Time 10.9 Seconds (9.50-12.1)
[2025-03-06 07:15] VITALS: BP 130/68; PULSE 77; RESP 17; O2SAT 96
[2025-03-06 07:16] LABS: NT Pro B Type Natriuretic Pept 300 pg/mL (19.9-100)
[2025-03-06 07:19] LABS: Troponin I < 0.012 ng/mL (0.000-0.034)
[2025-03-06 08:00] VITALS: BP 127/52; PULSE 82; RESP 16; O2SAT 95
[2025-03-06 08:30] VITALS: BP 129/58; PULSE 79; RESP 18; TEMP 36.6; O2SAT 96
[2025-03-06 08:40] VITALS: BP 129/58; PULSE 79; RESP 18; TEMP 36.6; O2SAT 96
== END 2025-03-06 08:40 | disposition home or self-care (01) ==
PROVIDERS: Internal Medicine Critical Care Medicine; Emergency Provider Emergency Medicine; PCP Family Medicine
DX: M94.0 Chondrocostal junction syndrome [Tietze] (principal); R07.89 Other chest pain; E11.9 Type 2 diabetes mellitus without complications; E78.5 Hyperlipidemia, unspecified; I25.10 Atherosclerotic heart disease of native coronary artery without angina pectoris; I10 Essential (primary) hypertension; I50.9 Heart failure, unspecified; F17.210 Nicotine dependence, cigarettes, uncomplicated
CPT/HCPCS: 36415; 71045; 80053; 83605; 83735; 83880; 84484; 85025; 85380; 85610; 93005; 99284